=== PATIENT | female | born 1955 | race Caucasian/White ===

== ENCOUNTER → 2019-09-19 15:43 | Outpatient (CLI) | payer OTHER, MEDICAID, SELFPAY ==
[2019-09-23 04:37] LABS: COVID19 Sendout Not Detected (Not Detected)
== END ==
PROVIDERS: Visit Provider Physician Assistant
DX: R05 Cough (principal); R06.02 Shortness of breath; R50.9 Fever, unspecified
CPT/HCPCS: 87635

== ENCOUNTER → 2019-11-12 11:22 | Outpatient (CLI) | payer OTHER, MEDICAID, SELFPAY ==
[2019-11-13 09:54] LABS: COVID19 Sendout Not Detected (Not Detect)
== END ==
PROVIDERS: Family Provider Nurse Practitioner Family; PCP Nurse Practitioner Family; Visit Provider Nurse Practitioner
DX: Z11.59 Encounter for screening for other viral diseases (principal)
CPT/HCPCS: 87635

== ENCOUNTER 2019-11-15 07:57 | Day surgery (SDC) | payer OTHER, MEDICAID, SELFPAY ==
[2019-11-12 12:36] VITALS: BMI 33.0
[2019-11-15] VITALS (7 sets, daily range): BP systolic 105–125; BP diastolic 59–75; PULSE 73–85; RESP 12–16; TEMP 36–36.8; O2SAT 92–95; BMI 32.8
[2019-11-15] MEDS: LACTATED RINGERS 1,000 ML 42 ML IV (08:20)
--- NOTE | 2019-11-15 08:30 | PM.PREOP ---
Pre-operative Note COVID-19 COVID-19 status: Negative Result date/Date tested (Pos, Neg/Pending): 11/12/19 Interval Note History & Physical reviewed/Exam performed by Physician: Yes Changes to H&P: No
[2019-11-15] MEDS: ACETAMINOPHEN 325 MG TABLET 975 MG PO (08:38)
[2019-11-15] MEDS: SCOPOLAMINE 1 PATCH TOP (08:39)
--- NOTE | 2019-11-15 08:49 | SUR.OPER ---
Lithotomy on padded OR bed, head on pillow, arms secured on padded arm boards at <90 degrees abduction. Legs secured in padded yellow fins stirrups.
[2019-11-15] MEDS: CEFAZOLIN 2 GM/100 ML FROZ.PIGGY IV (09:00)
[2019-11-15] MEDS: BUPIVACAINE 0.5% W/ EPI (PF) 30 ML VIAL INJ (09:18)
--- NOTE | 2019-11-15 10:05 | PM.OP.1 ---
Operative Date/Time/Diagnoses Date of procedure: 11/15/19 Time of procedure: 10:05 Pre-op diagnosis: Symptomatic rectocele and gaping introitus Post-op diagnosis: same Procedure & Clinicians Procedure: Rectocele repair with perineoplasty Same procedure as scheduled: Yes Indications: Symptomatic rectocele Surgeon: Rosana Snowden Click Yes if Unassisted: Yes Anesthesia Type: General Operative Notes Findings: Rectocele with gaping introitus Closure Type: primary Specimen(s): none sent Estimated Blood Loss (mL): 100 Blood products transfused: none Procedure in detail: Patient underwent general anesthesia and was prepped and draped in the usual sterile fashion in [facility] stir[facility]ups. 2 g of Ancef were in prior to beginning the case, warming was in place, pulsatile stockings in place and functional. A check system was reviewed with the staff in the room prior to beginning the case. A dilute solution of 0.5% Marcaine was injected over the rectocele and the area for the perineoplasty. A wedge-shaped tissue was taken out of the posterior fourchette with the scalpel. An incision was made over the rectocele in the midline. Dissection was undertaken laterally. There was a right lateral defect in the rectal fascia. This was repaired with 2 0 Vicryl suture. Plication sutures of 0 Vicryl suture were placed over the rectocele. Small amount of excess tissue was removed the vaginal incision was repaired with 2 0 Vicryl suture. The perineal body was built up with 0 Vicryl followed by 2 0 Vicryl suture. The skin was closed with 2 0 Vicryl. Finger in the rectum did not reveal any sutures in the rectum. Counts of instruments and sponges were correct. Patient went to recovery room in good condition Complications: none Post-operative Condition: stable Disposition: same day surgery Plan for aftercare: Home when awake and stable to
[2019-11-15] MEDS: OXYCODONE IR 5 MG TABLET PO ×2 (10:08→10:38)
== END 2019-11-15 11:04 | disposition home or self-care (01) ==
PROVIDERS: Family Provider Nurse Practitioner Family; PCP Student in an Organized Health Care Education/Training Program; Referring Provider Student in an Organized Health Care Education/Training Program; Visit Provider Specialist
PROC: (CPT 57250; principal; 2019-11-15 09:15)
DX: N81.6 Rectocele (principal); R15.9 Full incontinence of feces; G47.33 Obstructive sleep apnea (adult) (pediatric); F41.9 Anxiety disorder, unspecified
CPT/HCPCS: 57250; J0690; J1100; J1885; J2250; J2405; J2704; J3010

== ENCOUNTER 2019-12-20 13:32 | Emergency (ER) | payer OTHER, MEDICAID, SELFPAY ==
[2019-12-20] VITALS (10 sets, daily range): BP systolic 135–163; BP diastolic 62–88; PULSE 86–95; RESP 20; TEMP 37.6; O2SAT 93–98; BMI 32.3
--- NOTE | 2019-12-20 13:41 | DI.CT.S_ITS ---
PROCEDURE: CT ABDOMEN PELVIS W CON INDICATIONS: Left-sided abdominal pain TECHNIQUE: After the administration of intravenous contrast, 5 mm thick sections acquired from the diaphragm to the symphysis. 5 mm coronal and sagittal reformats were acquired. For radiation dose reduction, the following was used: automated exposure control, adjustment of mA and/or kV according to patient size. COMPARISON: None. FINDINGS: Image quality: Excellent. ABDOMEN: Lung bases: Mild bibasilar dependent atelectasis is seen. Heart size is normal. Solid organs: Liver is normal in size . Hepatic steatosis is seen. Well-circumscribed hypodense area involving medial segment of left hepatic lobe is seen measures 3 x 3.3 cm in size and 6 Hounsfield unit density likely represent hepatic cyst. 2.4 x 1.4 cm slightly hyperdense structure is noted within dependent portion of gallbladder lumen likely represent a gallstone. Gallbladder wall mass cannot be entirely excluded. No gallbladder wall thickening or pericholecystic fluid. Biliary system is non dilated. Pancreas enhances normally. Spleen is normal in size and enhancement. 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 No adrenal nodules. Kidneys demonstrate normal size and enhancement, without hydronephrosis. Small bilateral renal cysts are seen. Peritoneum and bowel: There is no evidence of bowel obstruction. No gastric or small bowel wall thickening. Appendix is visualized and is within normal limits. Wall thickening and narrowing of the lumen involving proximal to mid sigmoid colon is seen with pericolonic fat stranding. Numerous sigmoid colon diverticuli are also noted. Finding is consistent with acute diverticulitis in this region. No abscess collection. No free fluid or free air. Nodes and vessels: No retroperitoneal or mesenteric adenopathy by size criteria. Aorta and inferior vena cava are normal in size. Miscellaneous: No ventral hernias. PELVIS: Genitourinary: Bladder wall thickness is normal. Miscellaneous: No inguinal hernias or adenopathy. Bones: No suspicious bony lesions. No vertebral body compression fractures. IMPRESSION: 1. Finding is suggestive of acute diverticulitis involving proximal to mid sigmoid colon. No evidence of abscess collection. No bowel obstruction. No free fluid or free air. Normal appendix. 2. No renal stone or hydronephrosis. Bilateral renal cysts. 3. Likely 3 x 3.3 centimeter cyst in left hepatic lobe. 4. Suggestion of cholelithiasis. Gallbladder mass cannot be entirely excluded. Follow-up with outpatient ultrasound of abdomen is recommended. Dictated by: Marcial Palacios M.D. on 12/20/2019 at 15:04 Approved by: Marcial Palacios M.D. on 12/20/2019 at 15:30
--- NOTE | 2019-12-20 13:48 | ED_ITS ---
HPI - General Adult General Chief complaint: Abdominal Pain Stated complaint: Abd pain x1 Time Seen by Provider: 12/20/19 13:40 Source: patient Mode of arrival: Ambulatory Limitations: no limitations History of Present Illness HPI narrative: Patient is a 64-year-old female sent over from her primary doctor's office for evaluation of left lower quadrant abdominal pain. Patient states that symptoms been going on for the past 12 hours or so. She stated that last evening she generally did not feel very well and then overnight started having left-sided abdominal pain. She does have a history of diverticulitis/di verticulosis. She stated initially this symptoms did feel like her prior history of diverticulitis however now the symptoms seem to have moved lower into her pelvis. She is having some nausea but no vomiting. Several weeks ago she did have a rectocele repair performed. She denies any change in her bowel habits. No urinary symptoms. No vaginal bleeding. No prior abdominal surgeries except for the rectocele repair. Has not tried anything for symptoms prior to arrival. Related Data Home Medications Medication Instructions Recorded Confirmed bupropion HCl 300 mg 24 hr tablet, 300 mg PO QAM 10/30/19 11/29/19 extended release trazodone 150 mg tablet 150 mg PO BEDTIME PRN 10/30/19 11/29/19 Previous Rx's Medication Instructions Recorded oxycodone-acetaminophen 5 mg-325 2 tab PO Q4-6H PRN #14 tab 11/16/19 mg tablet ciprofloxacin HCl 500 mg PO BID 10 Days #20 tab 12/20/19 metronidazole [Flagyl] 500 mg PO TID 10 Days #30 tab 12/20/19 Allergies Allergy/AdvReac Type Severity Reaction Status Date / Time hydrocodone [From [place]] AdvReac itching/steve Verified 11/29/19 16:12 mbling Review of Systems Constitutional Constitutional: Reports chills, Denies fever(s) and Reports malaise Cardiovascular Cardiovascular: Denies chest pain and Denies dyspnea Respiratory Respiratory: Denies dyspnea Gastrointestinal Gastrointestinal: Reports abdominal pain, Denies melena, Denies hematochezia, Denies change in bowel habits, Denies constipation, Denies diarrhea, Reports nausea and Denies vomiting Genitourinary Genitourinary: Denies dysuria Genitourinary: Denies dysuria Musculoskeletal Musculoskeletal: Denies arthralgias and Denies myalgias Integumentary/Breasts Skin/Breast: Denies rash Neurologic Neurologic: Denies behavioral changes Psychiatric Psychiatric: Denies behavioral changes Hematologic/Lymphatic Hematologic/Lymphatic: Denies easy bleeding and Denies easy bruising Allergic/Immunologic Allergic/Immunologic: Denies urticaria Patient History Medical History (Updated 12/20/19 @ 16:02 by Manav Rose DO) Anxiety (Acute) Diverticulitis (Acute) Diverticulosis (Acute) Fecal incontinence due to anorectal disorder (Inactive) Mild vaginal dysplasia, histologically confirmed (Inactive) ASHKAN (obstructive sleep apnea) (Acute) Rectocele (Inactive) Urge incontinence (Inactive) Surgical History (Updated 11/12/19 @ 12:41 by Laurie Sen RN) Hx of colonoscopy (Acute) Social History household members: none Smoking Status: Never smoker alcohol intake: current Smoking Status: Never smoker alcohol intake frequency: a few times a week Substance Use Type: does not use Exam Initial Vital Signs Initial Vital Signs: Vital Signs Pulse Rate 93 H 12/20/19 13:41 Pulse Oximetry 94 12/20/19 13:41 Const General: cooperative and No comfortable (Uncomfortable) Limitations: mental status not altered HENMT Head: normal to inspection and normocephalic Resp Effort & Inspection: normal respiratory effort Auscultation: clear to auscultation bilaterally Cardio Rate: regular rate Rhythm: regular rhythm GI Inspection: non-distended Palpation: soft, No firm and tender (Left-sided abdomen/left adnexa/suprapubic) Back/Spine/Pelvis Back: CVA tenderness left Skin Lesions: no lesions Rashes: no rashes Neuro General: patient alert, patient awake and patient oriented x3 Cognition: normal cognition Speech: speech normal Extrem General: normal to inspection and capillary refill normal Psych Appearance: grossly normal and well kempt Scores GCS Morton coma scale eye opening: Spontaneous Morton coma scale verbal response: Orientated Morton coma scale motor response: Obey commands Morton coma scale total score: 15 Course Orders Ordered: ED Orders 12/20/19 13:41 CT abdomen pelvis w con Stat 12/20/19 14:05 Complete Blood Count AUTO DIFF Stat Comprehensive Metabolic Panel Stat Lactate (Lactic Acid) Stat Lipase Stat 12/20/19 15:10 Urine Culture Stat Urine Microscopic Stat Discontinued Medications Sodium Chloride (Normal Saline 0.9%) 1,000 mls @ 1,000 mls/hr IV BOLUS ONE Stop: 12/20/19 14:39 Last Infusion: 12/20/19 15:13 Dose: 0 mls/hr Documented by: Admin: 12/20/19 14:07 Dose: 1,000 mls/hr Documented by: NEERU Morphine Sulfate (Morphine) 4 mg IV NOW ONE Stop: 12/20/19 13:49 Last Admin: 12/20/19 14:07 Dose: 4 mg Documented by: NEERU Ondansetron HCl (Zofran) 4 mg IV NOW ONE Stop: 12/20/19 13:49 Last Admin: 12/20/19 14:07 Dose: 4 mg Documented by: NEERU Vital Signs Vital signs: Vital Signs - 8 hr 12/20/19 13:41 12/20/19 13:42 12/20/19 14:00 Temperature Pulse Rate 93 H 90 89 Respiratory Rate Blood Pressure 163/78 H 152/75 H Pulse Oximetry 94 95 95 12/20/19 14:01 12/20/19 14:05 12/20/19 14:30 Temperature 99.6 F Pulse Rate 89 88 86 Respiratory Rate 20 Blood Pressure 163/78 H 152/88 H 142/67 H Pulse Oximetry 95 97 96 12/20/19 14:50 12/20/19 15:00 12/20/19 15:30 Temperature Pulse Rate 92 H 95 H 94 H Respiratory Rate Blood Pressure 150/71 H 135/62 142/72 H Pulse Oximetry 93 96 97 12/20/19 16:00 Temperature Pulse Rate 87 Respiratory Rate Blood Pressure 148/73 H Pulse Oximetry 98 Medical Decision Making Medical Records Medical records reviewed: Yes I reviewed the patient's medical records. Lab Data Lab results reviewed: Yes I reviewed the patient's lab results. Result diagrams: 12/20/19 14:05 12/20/19 14:05 Labs: Lab Results 12/20/19 12/20/19 12/20/19 Range/Units 14:05 14:05 14:05 WBC 12.3 H (4.5-11.0) X10^3/uL RBC 4.49 (4.0-5.2) X10^6/uL Hgb 13.7 (12.0-16.0) g/dL Hct 40.1 (36-46) % MCV 89.2 (80-100) fL MCH 30.4 (26-34) PG MCHC 34.1 (30-36) % RDW 13.3 (11.6-14.8) % Plt Count 218 (150-400) X10^3/uL Neut % (Auto) 76.9 H (50-75) % Lymph % (Auto) 13.0 L (25-40) % Mcleod % (Auto) 8.5 (3-14) % Eos % (Auto) 1.0 L (2-4) % Baso % (Auto) 0.6 (0-2) % Neut # (Auto) 9400 H (8744-7735) /uL Lymph # (Auto) 1600 (7101-2617) /uL Mcleod # (Auto) 1000 H (0-900) /uL Eos # (Auto) 100 (0-450) /uL Baso # (Auto) 100 (0-100) /uL Sodium 138 (137-145) mmol/L Potassium 3.9 (3.4-5.1) mmol/L Chloride 101 (98-107) mmol/L Carbon Dioxide 30 (22-32) mmol/L BUN 13 (7-17) mg/dL Creatinine 0.59 (0.52-1.04) mg/dL Estimated GFR > 60.0 (>60) mL/min BUN/Creatinine Ratio 22.0 (6-22) Glucose 110 (80-110) mg/dL Lactate 1.2 (0.7-2.1) mmol/L Calcium 9.0 (8.4-10.2) mg/dL Total Bilirubin 0.5 (0.2-1.3) mg/dL AST 25 (14-36) IU/L ALT 40 H (<35) IU/L Alkaline Phosphatase 98 (38-126) U/L Total Protein 7.1 (6.3-8.2) g/dL Albumin 4.2 (3.5-5.0) g/dL Globulin 2.9 (1.7-4.1) g/dL Albumin/Globulin Ratio 1.4 (1.0-2.8) Lipase 57 (23-300) U/L Urine RBC (0-5/HPF) Urine WBC (0-5/HPF) Urine Bacteria (None) Ur Culture Indicated? 12/20/19 Range/Units 15:10 WBC (4.5-11.0) X10^3/uL RBC (4.0-5.2) X10^6/uL Hgb (12.0-16.0) g/dL Hct (36-46) % MCV (80-100) fL MCH (26-34) PG MCHC (30-36) % RDW (11.6-14.8) % Plt Count (150-400) X10^3/uL Neut % (Auto) (50-75) % Lymph % (Auto) (25-40) % Mcleod % (Auto) (3-14) % Eos % (Auto) (2-4) % Baso % (Auto) (0-2) % Neut # (Auto) (2701-9302) /uL Lymph # (Auto) (3581-7407) /uL Mcleod # (Auto) (0-900) /uL Eos # (Auto) (0-450) /uL Baso # (Auto) (0-100) /uL Sodium (137-145) mmol/L Potassium (3.4-5.1) mmol/L Chloride (98-107) mmol/L Carbon Dioxide (22-32) mmol/L BUN (7-17) mg/dL Creatinine (0.52-1.04) mg/dL Estimated GFR (>60) mL/min BUN/Creatinine Ratio (6-22) Glucose (80-110) mg/dL Lactate (0.7-2.1) mmol/L Calcium (8.4-10.2) mg/dL Total Bilirubin (0.2-1.3) mg/dL AST (14-36) IU/L ALT (<35) IU/L Alkaline Phosphatase (38-126) U/L Total Protein (6.3-8.2) g/dL Albumin (3.5-5.0) g/dL Globulin (1.7-4.1) g/dL Albumin/Globulin Ratio (1.0-2.8) Lipase (23-300) U/L Urine RBC 0-1/hpf (0-5/HPF) Urine WBC 5-10/hpf H (0-5/HPF) Urine Bacteria Few (2-10) H (None) Ur Culture Indicated? Specimen cultured Urine Dip Bedside Urine Glucose Negative Bedside Urine Bilirubin - Negative Bedside Urine Ketone - Negative Urine Specific Grayling 1.010 Bedside Urine Occult Blood - Negative Bedside Urine pH 7.0 Bedside Urine Protein - Negative Bedside Urine Urobilinogen - Negative Bedside Urine Nitrite - Negative Bedside Urine Leukocytes + 70 Esterase Point of care testing: Urine Dip Bedside Urine Glucose Negative Bedside Urine Bilirubin - Negative Bedside Urine Ketone - Negative Urine Specific Grayling 1.010 Bedside Urine Occult Blood - Negative Bedside Urine pH 7.0 Bedside Urine Protein - Negative Bedside Urine Urobilinogen - Negative Bedside Urine Nitrite - Negative Bedside Urine Leukocytes + [address] scan - abdomen/pelvis: Radiologist's Impression: [address] [address] [address] Scan Report Signed Patient: Laney Cervantes#: [id number] : 6Acct:[id number] Age/Sex: 64 / FDate of Service: 12/20/19 Loc: ED Accession Number: [id number] Procedure: CT abdomen pelvis w con Ordering Provider: Manav Rose D.O. PROCEDURE: CT ABDOMEN PELVIS W CON INDICATIONS: Left-sided abdominal pain TECHNIQUE: After the administration of intravenous contrast, 5 mm thick sections acquired from the diaphragm to the symphysis. 5 mm coronal and sagittal reformats were acquired. For radiation dose reduction, the following was used: automated exposure control, adjustment of mA and/or kV according to patient size. COMPARISON: None. FINDINGS: Image quality: Excellent. ABDOMEN: Lung bases: Mild bibasilar dependent atelectasis is seen. Heart size is normal. Solid organs: Liver is normal in size . Hepatic steatosis is seen. Well- circumscribed hypodense area involving medial segment of left hepatic lobe is seen measures 3 x 3.3 cm in size and 6 Hounsfield unit density likely represent hepatic cyst. 2.4 x 1.4 cm slightly hyperdense structure is noted within dependent portion of gallbladder lumen likely represent a gallstone. Gallbladder wall mass cannot be entirely ex cluded. No gallbladder wall thickening or pericholecystic fluid. Biliary system is non dilated. Pancreas enhances normally. Spleen is normal in size and enhancement. 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 No adrenal nodules. Kidneys demonstrate normal size and enhancement, without hydronephrosis. Small bilateral renal cysts are seen. Peritoneum and bowel: There is no evidence of bowel obstruction. No gastric or small bowel wall thickening. Appendix is visualized and is within normal limits. Wall thickening and narrowing of the lumen involving proximal to mid sigmoid colon is seen with pericolonic fat stranding. Numerous sigmoid colon diverticuli are also noted. Finding is consistent with acute diverticulitis in this region. No abscess c ollection. No free fluid or free air. Nodes and vessels: No retroperitoneal or mesenteric adenopathy by size criteria. Aorta and inferior vena cava are normal in size. Miscellaneous: No ventral hernias. PELVIS: Genitourinary: Bladder wall thickness is normal. Miscellaneous: No inguinal hernias or adenopathy. Bones: No suspicious bony lesions. No vertebral body compression fractures. IMPRESSION: 1. Finding is suggestive of acute diverticulitis involving proximal to mid sigmoid colon. No evidence of abscess collection. No bowel obstruction. No free fluid or free air. Normal appendix. 2. No renal stone or hydronephrosis. Bilateral renal cysts. 3. Likely 3 x 3.3 centimeter cyst in left hepatic lobe. 4. Suggestion of cholelithiasis. Gallbladder mass cannot be entirely excluded. Follow-up with outpatient ultrasound of abdomen is recommended. Dictated by: Marcial Palacios M.D. on 12/20/2019 at 15:04 Approved by: Marcial Palacios M.D. on 12/20/2019 at 15:30 MDM Narrative Medical decision making narrative: History and physical exam and CT scan consistent with sigmoid diverticulitis. Patient has a nonsurgical abdomen. Has had diverticulitis in the past. Leukocytosis is consistent with this infection. Will treat with antibiotics. Is given a prescription for Cipro and Flagyl. She was given return precautions and follow-up instructions. She expressed understanding and agreement. Discharge Plan Departure Patient Disposition: Home Clinical Impression: Diverticulitis Discharge Date/Time: 12/20/19 16:25 Instructions: DI for Diverticulitis Activity Restrictions/Additional Instructions: A prescription for antibiotics was electronically transmitted to safely. Please take it as directed. Contact your primary provider for follow-up. Return to the emergency department for any new or worsening symptoms Prescriptions: New ciprofloxacin HCl 500 mg tablet 500 mg PO BID 10 Days Qty: 20 RF: 0 metronidazole [Flagyl] 500 mg tablet 500 mg PO TID 10 Days Qty: 30 RF: 0 No Action oxycodone-acetaminophen 5-325 mg tablet 2 tab PO Q4-6H PRN (Reason: pain) Qty: 14 RF: 0 trazodone 150 mg tablet 150 mg PO BEDTIME PRN (Reason: Sleep) RF: 0 bupropion HCl [Wellbutrin XL] 300 mg tablet extended release 24 hr 300 mg PO QAM RF: 0 Referrals: Crista Valadez MD [Primary Care Provider] -
[2019-12-20] MEDS: MORPHINE 4 MG/ML INJ IV (14:07)
[2019-12-20] MEDS: ONDANSETRON 4 MG/2 ML INJ IV (14:07)
[2019-12-20] MEDS: SODIUM CHLORIDE 0.9% 1,000 ML 1000 ML IV (14:07)
[2019-12-20 14:12] LABS: Add Manual Diff / Slide Review NO; Basophils Absolute Auto 100 /uL (0-100); Basophils Percent Auto 0.6 % (0-2); Eosinophils Absolute Auto 100 /uL (0-450); Hematocrit 40.1 % (36-46); Hemoglobin 13.7 g/dL (12.0-16.0); Lymphocytes Absolute Auto 1600 /uL (1100-4500); Mean Corpuscular HGB Conc 34.1 % (30-36); Mean Corpuscular Hemoglobin 30.4 PG (26-34); Mean Corpuscular Volume 89.2 fL (80-100); Monocytes Absolute Auto 1000 /uL (0-900); Monocytes Percent Auto 8.5 % (3-14); Neutrophils Absolute Auto 9400 /uL (1500-7000); Neutrophils Percent Auto 76.9 % (50-75); Platelet Count 218 X10^3/uL (150-400); Red Blood Cell Count 4.49 X10^6/uL (4.0-5.2); Red Cell Distribution Width 13.3 % (11.6-14.8); White Blood Cell Count 12.3 X10^3/uL (4.5-11.0)
[2019-12-20 14:24] LABS: Alanine Aminotransferase 40 IU/L (<35); Albumin 4.2 g/dL (3.5-5.0); Albumin Globulin Ratio 1.4 (1.0-2.8); Alkaline Phosphatase 98 U/L (38-126); Aspartate Aminotransferase 25 IU/L (14-36); Bilirubin Total 0.5 mg/dL (0.2-1.3); Blood Urea Nitrogen 13 mg/dL (7-17); Carbon Dioxide 30 mmol/L (22-32); Chloride 101 mmol/L (98-107); Estimated Glomerular Filt Rate > 60.0 mL/min (>60); Globulin 2.9 g/dL (1.7-4.1); Glucose 110 mg/dL (80-110); HEMOLYSIS < 15 (0-50); Lactate (Lactic Acid) 1.2 mmol/L (0.7-2.1); Lipase 57 U/L (23-300); Potassium 3.9 mmol/L (3.4-5.1); Sodium 138 mmol/L (137-145); Total Protein 7.1 g/dL (6.3-8.2)
[2019-12-20 15:46] LABS: Bacteria Urine Few (2-10); Culture Indicated Urine Specimen Cultured; RBC Urine 0-1/HPF (0-5/HPF); WBC Urine 5-10/HPF (0-5/HPF)
== END 2019-12-20 16:25 | disposition home or self-care (01) ==
PROVIDERS: Emergency Provider Emergency Medicine; Family Provider Nurse Practitioner Family; PCP Student in an Organized Health Care Education/Training Program
DX: K57.92 Diverticulitis of intestine, part unspecified, without perforation or abscess without bleeding (principal)
CPT/HCPCS: 36415; 74177; 80053; 81003; 81015; 83605; 83690; 85025; 87086; 96361; 96374; 96375; 99284; J2270; J2405; Q9967

== ENCOUNTER → 2020-01-10 09:12 | Outpatient (CLI) | payer OTHER, MEDICAID, SELFPAY ==
--- NOTE | 2020-01-10 | DI.MRI.S_ITS ---
PROCEDURE: MR HEAD/BRAIN WO/W CON INDICATIONS: Transient cerebral ischemic attack, unspecified TECHNIQUE: Noncontrast axial T1 spin echo, axial T2 fast spin echo, sagittal and axial FLAIR, coronal T2 fast spin echo, axial gradient echo, axial diffusion and ADC through the brain. After the administration of contrast, axial and coronal 3D VIBE or T1 spin echo with fat saturation through the brain. COMPARISON: None. FINDINGS: Image quality: Limited by motion artifact. CSF Spaces: Basal cisterns are patent. No extra-axial fluid collections. Ventricles are normal in size and shape. Brain: No midline shift. No intracranial bleeds or masses. No abnormal intracranial enhancement. The brainstem appears normal. Diffusion-weighted images demonstrate no acute ischemic insults. No chronic ischemic insults. Normal intravascular flow voids are present. Dural sinuses demonstrate normal postcontrast enhancement. Skull and face: Calvarial marrow is normal in signal. Orbits appear normal. Sinuses: Sinuses and mastoids appear clear. IMPRESSION: 1. No acute intracranial disease process. 2. No areas of acute or chronic infarction. 3. No abnormal intracranial mass or mass effect. 4. No suspicious postcontrast enhancement. Dictated by: Ondina Black MD, PhD on 01/10/2020 at 11:27 Approved by: Ondina Black MD, PhD on 01/10/2020 at 11:31
== END ==
PROVIDERS: Family Provider Nurse Practitioner Family; PCP Student in an Organized Health Care Education/Training Program; Referring Provider Student in an Organized Health Care Education/Training Program; Visit Provider Student in an Organized Health Care Education/Training Program
DX: G45.9 Transient cerebral ischemic attack, unspecified (principal); H53.8 Other visual disturbances; R51.9 Headache, unspecified
CPT/HCPCS: 70553

== ENCOUNTER → 2020-01-11 13:21 | Outpatient (CLI) | payer OTHER, MEDICAID, SELFPAY ==
--- NOTE | 2020-01-11 13:22 | DI.MG.S_ITS ---
BILATERAL DIGITAL SCREENING MAMMOGRAM 3D/2D WITH CAD: 01/11/2020 CLINICAL: Routine screening. Comparison is made to exams dated: 07/31/2018 mammogram, 01/06/2017 mammogram, and 11/13/2015 mammogram - outside location. There are scattered fibroglandular elements in both breasts. Current study was also evaluated with a Computer Aided Detection (CAD) system. No significant masses, calcifications, or other findings are seen in either breast. There has been no significant interval change. IMPRESSION: NEGATIVE There is no mammographic evidence of malignancy. A 1 year screening mammogram is recommended. This exam was interpreted at Station ID: [id number]. NOTE: For mammograms, a report in lay terms will be sent to the patient. Approximately 15% of breast malignancies will not be visualized mammographically. In the management of a palpable breast mass, a negative mammogram must not discourage biopsy of a clinically suspicious lesion. Electronically Signed By: Ghislaine sapp/hector:01/13/2020 10:35:18 letter sent: Normal Exam ACR BI-RADS Category 1: Negative [id number]
== END ==
PROVIDERS: Family Provider Nurse Practitioner Family; PCP Student in an Organized Health Care Education/Training Program; Referring Provider Student in an Organized Health Care Education/Training Program; Visit Provider Student in an Organized Health Care Education/Training Program
DX: Z12.31 Encounter for screening mammogram for malignant neoplasm of breast (principal)
CPT/HCPCS: 77063; 77067

== ENCOUNTER → 2020-02-17 09:44 | Outpatient (CLI) | payer OTHER, MEDICAID, SELFPAY ==
[2020-02-17 10:12] LABS: COVID19 -Nasal RAPID POSITIVE (Negative)
== END ==
PROVIDERS: Family Provider Nurse Practitioner Family; PCP Student in an Organized Health Care Education/Training Program; Visit Provider Physician Assistant
DX: U07.1 COVID-19 (principal)
CPT/HCPCS: 87635

== ENCOUNTER 2020-02-26 17:49 | Emergency (ER) | payer OTHER, MEDICAID, SELFPAY ==
[2020-02-26 17:55] VITALS: BP 151/78; PULSE 90; RESP 17; TEMP 38.2; O2SAT 97; BMI 30.4
[2020-02-26 18:35] VITALS: PULSE 84; O2SAT 96
[2020-02-26 18:36] VITALS: BP 146/67; PULSE 84; O2SAT 97
--- NOTE | 2020-02-26 18:41 | DI.RAD.S_ITS ---
PROCEDURE: XR CHEST 1V INDICATIONS: covid + with SOB TECHNIQUE: One view of the chest was acquired. COMPARISON: None. FINDINGS: Surgical changes and devices: None. Mild patchy opacity in the right lung base. No pleural effusions or pneumothorax. Mediastinum: Mediastinal contours appear normal. Heart size is normal. Bones and chest wall: No suspicious bony lesions. Overlying soft tissues appear unremarkable. IMPRESSION: Mild patchy opacities involving the right lung base, suspicious for early pneumonia. Dictated by: Sea Torres M.D. on 02/26/2020 at 19:28 Approved by: Sea Torres M.D. on 02/26/2020 at 19:29
[2020-02-26 19:00] VITALS: BP 131/64; PULSE 81; O2SAT 94
[2020-02-26 19:30] VITALS: BP 146/68; PULSE 88; O2SAT 94
--- NOTE | 2020-02-26 19:48 | ED.GENADULT ---
HPI - General Adult General Chief complaint: Shortness of Breath/Dyspnea Stated complaint: SOB,positive COVID 10 days ago Time Seen by Provider: 02/26/20 18:03 Source: patient Mode of arrival: EMS Limitations: no limitations History of Present Illness HPI narrative: 64-year-old female who denies any other medical problems who was diagnosed with COVID approximately 10 days ago after having 2 days of symptoms prior to that here for evaluation of fevers and body aches and generally not feeling very well. She states she lives on her own and is having hard time taking care of herself because of how poorly she is feeling. Has had decreased oral intake recently. No rashes. Related Data Home Medications Medication Instructions Recorded Confirmed bupropion HCl 300 mg 24 hr tablet, 300 mg PO QAM 10/30/19 01/21/20 extended release trazodone 150 mg tablet 150 mg PO BEDTIME PRN 10/30/19 01/21/20 Previous Rx's Medication Instructions Recorded albuterol sulfate 90 mcg/actuation 2 puff INHALATION Q4-6H PRN #8.5 g 02/17/20 aerosol inhaler benzonatate 100 mg capsule 100 mg PO BID PRN #30 cap 02/17/20 Allergies Allergy/AdvReac Type Severity Reaction Status Date / Time hydrocodone [From Cades] AdvReac itching/steve Verified 02/26/20 18:00 mbling Review of Systems Constitutional Constitutional: Reports chills, Reports fatigue, Reports fever(s) and Reports lethargy Cardiovascular Cardiovascular: Denies chest pain and Reports dyspnea Respiratory Respiratory: Reports cough and Reports dyspnea Gastrointestinal Gastrointestinal: Denies change in bowel habits Musculoskeletal Musculoskeletal: Denies arthralgias and Reports myalgias Integumentary/Breasts Skin/Breast: Denies rash Neurologic Neurologic: Denies behavioral changes Psychiatric Psychiatric: Denies behavioral changes Endocrine Endocrine: Reports fatigue Hematologic/Lymphatic Hematologic/Lymphatic: Denies easy bleeding and Denies easy bruising Patient History Medical History Anxiety Diverticulitis Diverticulosis Fecal incontinence due to anorectal disorder Flu-like symptoms Mild vaginal dysplasia, histologically confirmed ASHKAN (obstructive sleep apnea) Rectocele Urge incontinence Surgical History Hx of colonoscopy Family History Family/Other Loud snoring Father Loud snoring Hypertension Diabetes mellitus Heart disease Depression Mother Loud snoring Obesity Hypertension Diabetes mellitus Depression Family/Other Obesity Heart disease Depression Social History household members: none Smoking Status: Never smoker alcohol intake: current Smoking Status: Never smoker alcohol intake frequency: a few times a week Substance Use Type: does not use Exam Initial Vital Signs Initial Vital Signs: Vital Signs Temperature 100.8 F H 02/26/20 17:55 Pulse Rate 90 02/26/20 17:55 Respiratory Rate 17 02/26/20 17:55 Blood Pressure 151/78 H 02/26/20 17:55 Pulse Oximetry 97 02/26/20 17:55 Const General: cooperative and comfortable Limitations: mental status not altered HENMT Head: normal to inspection and normocephalic Resp Effort & Inspection: normal respiratory effort Auscultation: clear to auscultation bilaterally Cardio Rate: regular rate Rhythm: regular rhythm Skin Lesions: no lesions Rashes: no rashes Neuro General: patient alert and patient awake Extrem General: capillary refill normal Psych Appearance: grossly normal and well kempt Course Orders Ordered: ED Orders 02/26/20 18:41 XR chest 1V Stat Vital Signs Vital signs: Vital Signs - 8 hr 02/26/20 17:55 02/26/20 18:35 02/26/20 18:36 Temperature 100.8 F H Pulse Rate 90 84 84 Respiratory Rate 17 Blood Pressure 151/78 H 146/67 H Pulse Oximetry 97 96 97 02/26/20 19:00 02/26/20 19:30 02/26/20 20:01 Temperature Pulse Rate 81 88 88 Respiratory Rate Blood Pressure 131/64 146/68 H 150/71 H Pulse Oximetry 94 94 95 Medical Decision Making Imaging Data Chest x-ray: Radiologist's Impression: [address] [id number] ReportSigned Patient: Laurie Cervantes DMR#: [id number]: 6Acct:[id number]/Sex: 64 / FDate of Service: 02/26/20Loc: EDAccession Number: [id number] Procedure: XR chest 1V Ordering Provider: Manav Rose D.O. PROCEDURE: XR CHEST 1V INDICATIONS: covid + with SOB TECHNIQUE: One view of the chest was acquired. COMPARISON: None. FINDINGS: Surgical changes and devices: None. Mild patchy opacity in the right lung base. No pleural effusions or pneumothorax. Mediastinum: Mediastinal contours appear normal. Heart size is normal. Bones and chest wall: No suspicious bony lesions. Overlying soft tissues appear unremarkable. IMPRESSION: Mild patchy opacities involving the right lung base, suspicious for early pneumonia. Dictated by: Sea Torres M.D. on 02/26/2020 at 19:28 Approved by: Sea Torres M.D. on 02/26/2020 at 19:29 [facility] Narrative Medical decision making narrative: Patient is not hypoxic, not tachypneic, afebrile, clear lung exam, has had COVID for the past 10 days. Had a long discussion with the patient regarding her symptoms. Given her respiratory status I feel that admission to the hospital is not warranted. We did discuss increasing her fluid intake and the fact that she can receive calories from fluid even though she is unable to eat. Did discuss use of Tylenol for any fevers or body aches. She was given return precautions. She expressed understanding and agreement. Discharge Plan Departure Patient Disposition: Home Clinical Impression: COVID-19 Instructions: Coronavirus Disease 2019 Activity Restrictions/Additional Instructions: Be sure to increase your fluid intake. You can get calories by drinking fluids such as fruit juices or Gatorade. You can take Tylenol for any fevers or body aches. Contact your primary provider for follow-up. Return to the emergency department for any new or worsening symptoms. You should quarantine yourself until you have been symptom-free for 24 hours. Prescriptions: No Action benzonatate [Tessalon Perles] 100 mg capsule 100 mg PO BID PRN (Reason: cough) Qty: 30 RF: 0 albuterol sulfate 90 mcg/actuation HFA aerosol inhaler 2 puff inhalation Q4-6H PRN (Reason: bronchospasm) Qty: 8.5 RF: 0 trazodone 150 mg tablet 150 mg PO BEDTIME PRN (Reason: Sleep) RF: 0 bupropion HCl [Wellbutrin XL] 300 mg tablet extended release 24 hr 300 mg PO QAM RF: 0 Referrals: Crista Valadez MD [Primary Care Provider] -
[2020-02-26 20:01] VITALS: BP 150/71; PULSE 88; O2SAT 95
== END 2020-02-26 20:04 | disposition home or self-care (01) ==
PROVIDERS: Emergency Provider Emergency Medicine; Family Provider Nurse Practitioner Family; PCP Student in an Organized Health Care Education/Training Program
DX: U07.1 COVID-19 (principal); R50.9 Fever, unspecified; R05 Cough; R06.00 Dyspnea, unspecified; R53.83 Other fatigue
CPT/HCPCS: 71045; 99281; 99283

== ENCOUNTER → 2020-04-24 09:40 | Outpatient (CLI) | payer OTHER, MEDICAID, SELFPAY ==
--- NOTE | 2020-04-24 | DI.MRI.S_ITS ---
PROCEDURE: MR KNEE RT WO CON INDICATIONS: Pain in right knee TECHNIQUE: Noncontrast sagittal PD fast spin echo and T2 fast spin echo with fat saturation, sagittal 3-D FLASH with fat saturation; coronal T1 spin echo and PD fast spin echo with fat saturation, and axial PD fast spin echo with fat saturation through the knee. COMPARISON: None. FINDINGS: Image quality: Excellent. Menisci: There is medial and lateral meniscal extrusion. There is degenerative tear involving the body and posterior horn of the medial meniscus. Degenerative tear is also present in lateral meniscus involving the anterior and posterior horns and body. The meniscal root ligaments appear intact. Cruciate ligaments: The anterior and posterior cruciate ligaments appear intact. Medial structures: The medial collateral ligament appears intact. The semimembranosus tendon insertions and meniscocapsular junction appear intact. Visualized portions of the pes anserinus tendons appear normal. No abnormal bursal fluid. Lateral structures: The lateral collateral ligament, long and short heads of the biceps femoris tendon appear intact. The popliteus tendon appears normal. Iliotibial band appears normal. Anterior structures: There is increased T2 signal in quadriceps and patellar tendons at the patellar attachment consistent with mild tendinitis. No femoral trochlear dysplasia or ventral trochlear prominence. No edema in the infrapatellar fat pad. Nonspecific infrapatellar soft tissue swelling Bones and cartilage: No bone marrow contusions or fractures. Tricompartmental chondromalacia. Joint space: There is trace knee joint effusion. There is a small Winslow's cyst. Normal appearing synovial plicae are incidentally noted. IMPRESSION: 1. Medial and lateral meniscal extrusions and degenerative tear as described. 2. Tricompartmental chondromalacia. 3. Mild quadriceps and patellar tendinitis. 4. Small knee joint effusion. 5. Small Winslow cyst. Dictated by: Sai Melchor M.D. on 04/24/2020 at 11:07 Approved by: Sai Melchor M.D. on 04/24/2020 at 18:13
== END ==
PROVIDERS: Family Provider Nurse Practitioner Family; PCP Student in an Organized Health Care Education/Training Program; Referring Provider Student in an Organized Health Care Education/Training Program; Visit Provider Student in an Organized Health Care Education/Training Program
DX: M25.561 Pain in right knee (principal); M23.241 Derangement of anterior horn of lateral meniscus due to old tear or injury, right knee; M23.251 Derangement of posterior horn of lateral meniscus due to old tear or injury, right knee; M23.221 Derangement of posterior horn of medial meniscus due to old tear or injury, right knee; M94.261 Chondromalacia, right knee; M76.51 Patellar tendinitis, right knee; M25.461 Effusion, right knee
CPT/HCPCS: 73721

== ENCOUNTER → 2020-05-01 12:26 | Outpatient (CLI) | payer OTHER, MEDICAID, SELFPAY ==
--- NOTE | 2020-05-01 12:28 | DI.CT.S_ITS ---
PROCEDURE: CT ABDOMEN PELVIS W CON INDICATIONS: Unspecified abdominal pain TECHNIQUE: After the administration of oral and intravenous contrast, 5 mm thick sections acquired from the diaphragms to the symphysis. 5 mm thick coronal and sagittal reformats were performed. For radiation dose reduction, the following was used: automated exposure control, adjustment of mA and/or kV according to patient size. COMPARISON: [facility], CT, CT ABDOMEN PELVIS W CON, 12/20/2019, 14:40. FINDINGS: Image quality: Excellent. ABDOMEN: Lung bases: Lung bases are clear. Heart size is normal. Solid organs: Liver is normal in size and enhancement. Stable hepatic cyst in the left hepatic lobe. Gallbladder again contains a mildly hyperdense lesion that most likely represents a gallstone. Biliary system is non-dilated. Pancreas enhances normally. Spleen is normal in size and enhancement. No adrenal nodules. Kidneys are normal in size and enhancement, without hydronephrosis. Peritoneum and bowel: Multiple diverticula are seen in the sigmoid colon without signs of acute diverticulitis. Areas of mild bowel wall thickening in the colon could indicate a mild colitis. Normal appendix. No signs of bowel obstruction. No ascites or pneumoperitoneum. Nodes and vessels: No retroperitoneal or mesenteric adenopathy. Aorta and inferior vena cava are normal in caliber. Miscellaneous: No ventral hernias. PELVIS: Genitourinary: Bladder wall thickness is normal. Status post hysterectomy. Miscellaneous: No inguinal hernias or adenopathy. Bones: No suspicious bony lesions. No vertebral body compression fractures. Mild facet hypertrophy is seen in the lower lumbar spine. IMPRESSION: 1. Colonic diverticulosis without signs of acute diverticulitis. Additional segments of mild bowel wall thickening versus underdistention in the colon could indicate a mild colitis. 2. Mildly hyperdense lesion in the gallbladder again most likely represents a gallstone versus less likely tumefactive sludge or a soft tissue mass. Abdominal ultrasound is again suggested for further evaluation. Dictated by: Kris Taylor M.D. on 05/01/2020 at 13:49 Approved by: Kris Taylor M.D. on 05/01/2020 at 14:07
== END ==
PROVIDERS: Family Provider Nurse Practitioner Family; PCP Student in an Organized Health Care Education/Training Program; Referring Provider Student in an Organized Health Care Education/Training Program; Visit Provider Student in an Organized Health Care Education/Training Program
DX: R10.9 Unspecified abdominal pain (principal); K92.1 Melena; K76.89 Other specified diseases of liver; K82.9 Disease of gallbladder, unspecified; K57.30 Diverticulosis of large intestine without perforation or abscess without bleeding; Z90.710 Acquired absence of both cervix and uterus
CPT/HCPCS: 74177

== ENCOUNTER → 2020-05-22 10:53 | Outpatient (CLI) | payer OTHER, MEDICAID, SELFPAY ==
[2020-05-22] MEDS: COVID-19 VACC, Ad26(JANSSEN)/PF 0.5 ML IM (10:55)
== END ==
PROVIDERS: Family Provider Nurse Practitioner Family; PCP Student in an Organized Health Care Education/Training Program; Visit Provider Internal Medicine
DX: Z23 Encounter for immunization (principal)
CPT/HCPCS: 0031A; 91303

== ENCOUNTER → 2020-05-22 11:19 | Outpatient (CLI) | payer OTHER, MEDICAID, SELFPAY ==
--- NOTE | 2020-05-22 | DI.RAD.S_ITS ---
PROCEDURE: XR PELVIS 1-2V INDICATIONS: Disease of gallbladder, unspecified TECHNIQUE: Single view(s) of the pelvis acquired. COMPARISON: None. FINDINGS: Bones: No fracture. Mild bilateral hip joint degeneration. Lower lumbar spondylosis and facet disease. Mild degenerative sclerosis and spurring at the pubis symphysis. Soft tissues: Presumed bilateral pelvic phleboliths. IMPRESSION: Mild degenerative changes as above. Dictated by: Sea Torres M.D. on 05/22/2020 at 12:56 Approved by: Sea Torres M.D. on 05/22/2020 at 12:57
--- NOTE | 2020-05-22 13:53 | DI.US.S_ITS ---
PROCEDURE: US ABDOMEN COMPLETE INDICATIONS: ABDOMEN PAIN TECHNIQUE: Real-time scanning was performed of the abdominal and retroperitoneal organs, with image documentation. COMPARISON: [facility], CT, CT ABDOMEN PELVIS W CON, 05/01/2020, 13:23. FINDINGS: Liver: Liver is diffusely increased in echogenicity. No focal hepatic abnormalities identified. Normal hepatic size. 4.3 cm left hepatic lobe cyst. Gallbladder: 2.4 cm solitary gallstone and no gallbladder wall thickening. Biliary ducts: Intrahepatic bile ducts are non-dilated. Extrahepatic bile duct caliber measures 6.6 mm. Normal is 6-7 mm or less in diameter, or 10 mm or less post-cholecystectomy. Pancreas: Visualized portions of the pancreas are sonographically normal. Spleen: Spleen is normal in size and homogeneous in echotexture. Kidneys: Kidneys are normal in size and echotexture. Right kidney measures 10.4 cm long; left kidney measures 13.1 cm long. No hydronephrosis or nephrolithiasis. No solid masses. Aorta: Visualized aorta is normal in caliber at less than 3 cm. Iliacs: Proximal common iliac arteries are normal in caliber at less than 2.5 cm. IVC: Intrahepatic inferior vena cava is patent. Miscellaneous: No free abdominal fluid. IMPRESSION: 1. Increased hepatic echogenicity noted possibly related to hepatic steatosis but other sources of hepatocellular disease cannot be excluded. Recommend clinical correlation. 2. Cholelithiasis without acute cholecystitis. Dictated by: J Carlos GAMA Interpreted: Nemo Escalera MD on 05/22/2020 at 15:40 Approved by: Nemo Escalera M.D. on 05/22/2020 at 16:50
== END ==
PROVIDERS: Family Provider Nurse Practitioner Family; PCP Student in an Organized Health Care Education/Training Program; Referring Provider Student in an Organized Health Care Education/Training Program; Visit Provider Student in an Organized Health Care Education/Training Program
DX: K82.9 Disease of gallbladder, unspecified (principal); K80.20 Calculus of gallbladder without cholecystitis without obstruction; R10.2 Pelvic and perineal pain
CPT/HCPCS: 72170; 76700

== ENCOUNTER → 2020-07-07 15:02 | Outpatient (CLI) | payer MEDICARE, MEDICAID, SELFPAY ==
[2020-07-07 17:03] LABS: Ferritin 75 ng/mL (11-264)
== END ==
PROVIDERS: Family Provider Nurse Practitioner Family; PCP Student in an Organized Health Care Education/Training Program; Referring Provider Nurse Practitioner Family; Visit Provider Nurse Practitioner Family
DX: R53.83 Other fatigue (principal); G47.33 Obstructive sleep apnea (adult) (pediatric); G47.01 Insomnia due to medical condition; G47.19 Other hypersomnia; R53.82 Chronic fatigue, unspecified; G25.81 Restless legs syndrome
CPT/HCPCS: 36415; 82728; 99214

== ENCOUNTER → 2021-04-23 10:17 | Outpatient (CLI) | payer MEDICARE, MEDICAID, SELFPAY ==
--- NOTE | 2021-04-23 | DI.MG.S_ITS ---
BILATERAL DIGITAL SCREENING MAMMOGRAM 3D/2D WITH CAD: 04/23/2021 CLINICAL: Routine screening. Comparison is made to exams dated: 01/11/2020 mammogram - [facility], 07/31/2018 mammogram, and 01/06/2017 mammogram - outside location. There are scattered fibroglandular elements in both breasts. Current study was also evaluated with a Computer Aided Detection (CAD) system. No significant masses, calcifications, or other findings are seen in either breast. There has been no significant interval change. IMPRESSION: NEGATIVE There is no mammographic evidence of malignancy. A 1 year screening mammogram is recommended. This exam was interpreted at Station ID: [id number]. NOTE: For mammograms, a report in lay terms will be sent to the patient. Approximately 15% of breast malignancies will not be visualized mammographically. In the management of a palpable breast mass, a negative mammogram must not discourage biopsy of a clinically suspicious lesion. Electronically Signed By: Kris godfrey/hector:04/23/2021 14:49:25 letter sent: Normal Exam ACR BI-RADS Category 1: Negative [id number]
== END ==
PROVIDERS: Family Provider Nurse Practitioner Family; PCP Student in an Organized Health Care Education/Training Program; Referring Provider Student in an Organized Health Care Education/Training Program; Visit Provider Student in an Organized Health Care Education/Training Program
DX: Z12.31 Encounter for screening mammogram for malignant neoplasm of breast (principal)
CPT/HCPCS: 77063; 77067

== ENCOUNTER → 2021-08-26 09:22 | Outpatient (CLI) | payer MEDICARE, MEDICAID, SELFPAY ==
[2021-08-26 10:02] LABS: COVID19 -Nasal RAPID Negative (Negative)
== END ==
PROVIDERS: Family Provider Nurse Practitioner Family; PCP Student in an Organized Health Care Education/Training Program; Visit Provider Specialist
DX: Z20.822 Contact with and (suspected) exposure to COVID-19 (principal); Z01.812 Encounter for preprocedural laboratory examination
CPT/HCPCS: 87635

== ENCOUNTER → 2021-08-27 10:47 | Day surgery (SDC) | payer MEDICARE, MEDICAID, SELFPAY ==
[2021-08-26 12:48] VITALS: BMI 32.8
--- NOTE | 2021-08-27 | PATH_ITS ---
[facility] Accession Number: [id number] . 01 Material submitted: . vagina - VAGINAL BIOPSY . 01 Clinical history: . SDC CARCINOMA IN SITU OF VAGINA . 01 Diagnosis: Vagina, Biopsy: Squamous mucosa with focal atrophy, chronic inflammation, and mild squamous atypia, consistent with low-grade squamous intraepithelial lesion (mild dysplasia/VAIN 1). Negative for high-grade squamous intraepithelial lesion and invasive malignancy. MRV 09/01/2021 1558 Local . 01 Electronically signed: . Samantha Mckenna MD, Pathologist NPI- [id number] . 01 Gross description: . VAGINAL BIOPSY: Received in formalin are 3 pieces of SEGMENT OF SKIN measuring 0.9 x 0.4 x 0.3 cm and 0.6 x 0.4 x 0.1 cm which are inked, bisected and submitted in toto in 2 cassettes. /CPE 08/28/2021 0431 Local . 01 Pathologist provided ICD-10: N89.0 . 01 CPT . 714845 Specimen Comment: A courtesy copy of this report has been sent to [phone] Performed at: 01 [facility] [address] [place] [address], [place], [place] [id number] MD Shimon Nicolas MD Phone: [phone]
[2021-08-27 11:08] VITALS: BP 133/77; PULSE 79; RESP 18; TEMP 36.2; O2SAT 98; BMI 32.8
[2021-08-27] MEDS: LACTATED RINGERS 1,000 ML 42 ML IV (11:42)
--- NOTE | 2021-08-27 11:59 | PM.PREOP ---
Pre-operative Note COVID-19 COVID-19 status: Negative Result date/Date tested (Pos, Neg/Pending): 08/26/21 Criteria for continued procedure: Expected advancement of disease process Interval Note History & Physical reviewed/Exam performed by Physician: Yes Changes to H&P: No
[2021-08-27] MEDS: CEFAZOLIN 2 GM/20 ML SYRINGE IV (13:52)
--- NOTE | 2021-08-27 13:58 | SUR.OPER ---
Lithotomy on padded OR bed, head on pillow, arms secured on padded arm boards at <90 degrees abduction. Legs secured in padded yellow fins stirrups. Directed and approved by Surgeon
--- NOTE | 2021-08-27 14:21 | P.OP_ITS ---
Operative Date/Time/Diagnoses Date of procedure: 08/27/21 Time of procedure: 14:21 Pre-op diagnosis: VAIN 3 Post-op diagnosis: same Procedure & Clinicians Procedure: Colposcopy with vulvar biopsy and cauterization of vulvar dysplasia Same procedure as scheduled: Yes Indications: VAIN 3 Surgeon: Rosana Snowden Click Yes if Unassisted: Yes Anesthesia Type: General Operative Notes Findings: Four areas of thickened white epithelium at vaginal apex by colposcopy Closure Type: primary Specimen(s): other (Vaginal biopsy) Estimated Blood Loss (mL): 5 Blood products transfused: none Procedure in detail: Patient was brought to the operating room where she underwent general anesthesia. She was placed in low [facility]. Patient was draped. A check system was reviewed with the staff in the room prior to the beginning of the case. 2 g of Ancef were given to the patient. Patient had urinated prior to coming into the operating room. A speculum was placed in the vagina and ascetic acid placed on the vaginal tissue. Colposcopy was performed. The areas of thickened white tissue were noted. An area of the top of the vaginal cuff was grasped and removed with Metzenbaum scissors. The defect was repaired with 4-0 Vicryl suture. Some small areas of thickened tissue were cauterized with the Bovie at 30 w of coag. Patient went to recovery room in good condition. Counts of instruments and sponges were correct. Complications: none Post-operative Condition: stable Disposition: same day surgery Plan for aftercare: Home when awake and stable. Patient will be contacted with biopsy results and treatment and follow-up based on those results.
[2021-08-27 14:24] VITALS: BP 116/62; PULSE 79; RESP 16; O2SAT 93
[2021-08-27 14:29] VITALS: BP 118/68; PULSE 74; RESP 14; O2SAT 95
[2021-08-27 14:44] VITALS: BP 123/70; PULSE 72; RESP 16; O2SAT 95
[2021-08-27 14:45] VITALS: TEMP 36.4
[2021-08-27] MEDS: ACETAMINOPHEN 325 MG TABLET 650 MG PO (14:45)
[2021-08-27 14:58] VITALS: BP 119/64; PULSE 73; RESP 16; TEMP 36.7; O2SAT 97
--- NOTE | 2021-08-27 15:00 | SUR.PHASEI ---
1457: Pt A&Ox4, denies distress, reports pain as tolerable and ready to transfer to phase II nursing. Report given to ELZBIETA Means using SBAR with time allowed for questions. Transfer of care now.
== END | disposition home or self-care (01) ==
PROVIDERS: Family Provider Nurse Practitioner Family; PCP Student in an Organized Health Care Education/Training Program; Referring Provider Specialist; Visit Provider Specialist
PROC: (CPT 57421; principal; 2021-08-27 11:45)
DX: N89.0 Mild vaginal dysplasia (principal); F41.9 Anxiety disorder, unspecified; G25.81 Restless legs syndrome; Z80.41 Family history of malignant neoplasm of ovary; Z80.3 Family history of malignant neoplasm of breast
CPT/HCPCS: 57421; J0690; J1100; J2250; J2405; J2704; J3010

== ENCOUNTER → 2021-09-04 11:45 | Outpatient (CLI) | payer MEDICARE, MEDICAID, SELFPAY ==
--- NOTE | 2021-09-04 11:47 | DI.MRI.S_ITS ---
PROCEDURE: MR KNEE RT WO CON INDICATIONS: Pain in right knee TECHNIQUE: Noncontrast sagittal PD fast spin echo and T2 fast spin echo with fat saturation, sagittal 3-D FLASH with fat saturation; coronal T1 spin echo and PD fast spin echo with fat saturation, and axial PD fast spin echo with fat saturation through the knee. COMPARISON: [facility], CR, XR KNEE 1 OR 2 VIEWS RIGHT, 06/02/2020, 13:04. [facility], CR, XR KNEE 1 OR 2 VIEWS RIGHT, 07/13/2020, 12:50. [facility], MR, MR KNEE RT WO CON, 04/24/2020, 10:05. FINDINGS: Image quality: Excellent. Bone and joint: There is right knee total arthroplasty. Metallic artifacts obscure adjacent structures. No fracture or dislocation. There is inferior subluxation of patella. There is knee joint effusion is present. There is a small Winslow's cyst. Soft tissue: The quadriceps tendon and patellar tendon appears thickened with heterogeneous signal consistent with tendinitis. No mass or hematoma. IMPRESSION: 1. Total knee arthroplasty with metallic artifacts obscuring adjacent structures in the knee. 2. There is inferior subluxation of patella. 3. Moderate quadriceps and patellar tendinitis. 4. Small knee joint effusion. 5. Small Winslow's cyst. 6. If there is clinical suspicion for prosthesis loosening or infection, a triple phase bone scan may be helpful. Dictated by: Sai Melchor M.D. on 09/06/2021 at 9:22 Approved by: Sai Melchor M.D. on 09/06/2021 at 9:31
== END ==
PROVIDERS: Family Provider Nurse Practitioner Family; PCP Student in an Organized Health Care Education/Training Program; Referring Provider Student in an Organized Health Care Education/Training Program; Visit Provider Student in an Organized Health Care Education/Training Program
DX: S83.091A Other subluxation of right patella, initial encounter (principal); M76.51 Patellar tendinitis, right knee; M25.461 Effusion, right knee; M25.561 Pain in right knee; Z96.651 Presence of right artificial knee joint
CPT/HCPCS: 73721

== ENCOUNTER → 2021-09-28 14:33 | Outpatient (CLI) | payer MEDICARE, MEDICAID, SELFPAY ==
--- NOTE | 2021-09-28 | DI.RAD.S_ITS ---
PROCEDURE: XR KNEE RT 3V INDICATIONS: Right knee pain TECHNIQUE: 3 views of the knee were acquired. COMPARISON: [facility], MR, MR KNEE RT WO CON, 09/04/2021, 11:54. FINDINGS: Right total knee arthroplasty. No abnormal lucency surrounding the hardware. No acute complicating feature otherwise. No knee joint effusion. IMPRESSION: Normal appearance of right total knee arthroplasty. Dictated by: Jacky Goldman M.D. on 09/29/2021 at 10:00 Approved by: Jacky Goldman M.D. on 09/29/2021 at 10:02
== END ==
PROVIDERS: Family Provider Nurse Practitioner Family; PCP Family Medicine; Referring Provider Family Medicine; Visit Provider Family Medicine
DX: M25.561 Pain in right knee (principal); Z96.651 Presence of right artificial knee joint
CPT/HCPCS: 73562

== ENCOUNTER → 2022-04-05 15:37 | Outpatient (CLI) | payer MEDICARE, MEDICAID, SELFPAY ==
--- NOTE | 2022-04-05 | DI.RAD.S_ITS ---
PROCEDURE: XR LUMBAR SPINE 2-3V INDICATIONS: M54.50 TECHNIQUE: 3 views of the lumbar spine were acquired. COMPARISON: None. FINDINGS: Bones: 5 [id number] vertebrae are present. There is mild, approximately 7 millimeters of L4-L5 anterolisthesis secondary to facet hypertrophy. No vertebral body compression fractures. No suspicious bony lesions. Mild degenerative disc changes noted throughout the lumbar spine. Mild to moderate L4-L5 and L5-S1 facet arthropathy. Soft tissues: Overlying bowel gas pattern is normal. No suspicious soft tissue calcifications. IMPRESSION: 1. Multilevel degenerative disc disease. 2. Multilevel facet arthropathy. 3. No fracture. No acute osseous lesion. If symptoms and/or clinical suspicion for pathology persists, evaluation with MRI should be considered for further assessment. 4. Grade 1 L4-L5 degenerative spondylolisthesis. Dictated by: Ondina Black MD, PhD on 04/05/2022 at 16:11 Approved by: Ondina Black MD, PhD on 04/05/2022 at 16:12
== END ==
PROVIDERS: Family Provider Nurse Practitioner Family; PCP Family Medicine; Referring Provider Family Medicine; Visit Provider Family Medicine
DX: M51.36 Other intervertebral disc degeneration, lumbar region (principal); M47.816 Spondylosis without myelopathy or radiculopathy, lumbar region; M47.817 Spondylosis without myelopathy or radiculopathy, lumbosacral region; M54.50 Low back pain, unspecified
CPT/HCPCS: 72100

== ENCOUNTER → 2022-04-07 11:04 | Outpatient (CLI) | payer MEDICARE, MEDICAID, SELFPAY ==
--- NOTE | 2022-04-07 | DI.RAD.S_ITS ---
PROCEDURE: XR DEXA AXIAL SKELETON INDICATIONS: Asymptomatic menopausal state COMPARISON: None. FINDINGS: This blank DEXA report has been sent in error by the PACS system. The correct and complete report will be forthcoming in 1-2 days. Thank you for your patience and understanding. Dictated by: Jacky Goldman M.D. on 04/07/2022 at 14:31 Approved by: Jacky Goldman M.D. on 04/07/2022 at 14:31
== END ==
PROVIDERS: Family Provider Nurse Practitioner Family; PCP Family Medicine; Referring Provider Internal Medicine; Visit Provider Internal Medicine
DX: Z78.0 Asymptomatic menopausal state (principal); Z13.820 Encounter for screening for osteoporosis
CPT/HCPCS: 77080

== ENCOUNTER → 2022-04-07 11:06 | Outpatient (CLI) | payer MEDICARE, MEDICAID, SELFPAY ==
--- NOTE | 2022-04-07 11:07 | DI.US.S_ITS ---
PROCEDURE: US PELVIC COMPLETE INDICATIONS: evaluate ovaries, h/o hysterectomy TECHNIQUE: Real-time scanning was performed of the pelvic organs, with image documentation. Additional endovaginal scanning was necessary due to incomplete visualization of the adnexal and endometrial structures by transabdominal scanning. COMPARISON: None. FINDINGS: Uterus: Patient is status post hysterectomy. Ovaries: The right ovary is not visualized. The left ovary measures 3.2 x 1.4 x 2.0 cm, with a calculated ovarian volume of 4.7 cc. There is a dominant follicle within the left ovary which measures 1.8 x 1.5 x 1.7 cm. There are fewer than 12 follicles in the left ovary. Other: No pathologic free abdominal or pelvic fluid. IMPRESSION: 1. Normal sonographic appearance of the left ovary. Nonvisualization of the right ovary. We strive to produce accurate, complete, and clear reports of imaging services. To assist us in improving patient care, this report was composed using standard report templates and voice recognition software. Therefore, it may contain abnormal punctuation, insertions and/or omissions. Occasional wrong-word or sound-alike substitutions may occur. Though we review the report and make efforts to correct it, we do recommend that the report be read carefully in proper context to recognize any text inaccuracies. Dictated by: Destinee De Luna M.D. on 04/07/2022 at 15:09 Approved by: Destinee De Luna M.D. on 04/07/2022 at 15:11
== END ==
PROVIDERS: Family Provider Nurse Practitioner Family; PCP Family Medicine; Referring Provider Obstetrics & Gynecology; Visit Provider Obstetrics & Gynecology
DX: R10.31 Right lower quadrant pain (principal); Z13.820 Encounter for screening for osteoporosis; Z78.0 Asymptomatic menopausal state; Z90.710 Acquired absence of both cervix and uterus
CPT/HCPCS: 76830; 76856; 77080

== ENCOUNTER → 2022-04-29 16:19 | Outpatient (CLI) | payer MEDICARE, MEDICAID, SELFPAY ==
--- NOTE | 2022-04-29 16:20 | DI.MRI.S_ITS ---
PROCEDURE: MR LUMBAR SPINE WO CON INDICATIONS: Radiculopathy, lumbar region TECHNIQUE: Noncontrast sagittal T1 spin echo and T2 fast echo, sagittal STIR, and T2 fast spin echo through the lumbar spine. In cases with scoliosis, additional coronal T2 fast spin echo may be performed. COMPARISON: [facility], CT, CT ABDOMEN PELVIS W CON, 05/01/2020, 13:23. [facility], CR, XR LUMBAR SPINE 2-3V, 04/05/2022, 15:48. FINDINGS: Image quality: Excellent. Alignment and Curvature: There is minimal anterolisthesis seen at the L4-L5 level. Minimal levoconvex scoliotic curvature is seen. Bone Marrow: Marrow is of normal overall signal. No acute vertebral body compression fractures. Spinal Cord: Conus medullaris terminates at the L1 level. Visualized cord demonstrates normal signal and size. Paraspinous Soft Tissues: No paravertebral masses. T12-L1: Normal appearance. L1-L2: Normal appearance. L2-L3: No significant abnormality is seen. L3-L4: The disc height and disk signal are relatively well-preserved. Mild to moderate disc bulge is seen at this level. Moderate facet joint hypertrophy is seen. Mild to moderate bilateral neural foraminal narrowing can be seen. Mild to moderate central canal narrowing is seen. L4-L5: Mild loss of disc height is seen. Loss of disc signal is seen. Mild to moderate disc bulge is seen, with a central disc protrusion. At least moderate facet hypertrophy is seen. Fluid is seen within the facet joints themselves. There is at least moderate right-sided and moderate left-sided neural foraminal narrowing. Moderate central canal narrowing is seen. L5-S1: The disc height is well-preserved. Loss of disc signal is seen at this level. Mild generalized disc bulge is seen. There is a superimposed central disc protrusion. There is a focal annular fissure seen posteriorly. Moderate facet joint hypertrophy is seen. There is moderate bilateral neural foraminal narrowing seen, left worse than right. Mild central canal narrowing is seen. IMPRESSION: Multiple levels of lumbar spine degenerative change can be seen, which are worst inferiorly. Dictated by: Romario Wilcox M.D. on 04/29/2022 at 17:01 Approved by: Romario Wilcox M.D. on 04/29/2022 at 17:05
== END ==
PROVIDERS: Family Provider Nurse Practitioner Family; PCP Family Medicine; Referring Provider Pain Medicine Pain Medicine; Visit Provider Pain Medicine Pain Medicine
DX: M47.26 Other spondylosis with radiculopathy, lumbar region; M47.27 Other spondylosis with radiculopathy, lumbosacral region
CPT/HCPCS: 72148

== ENCOUNTER → 2022-05-18 08:33 | Outpatient (CLI) | payer MEDICARE, MEDICAID, SELFPAY ==
--- NOTE | 2022-05-18 | DI.MG.S_ITS ---
BILATERAL DIGITAL SCREENING MAMMOGRAM 3D/2D WITH CAD: 05/18/2022 CLINICAL: Routine screening. Comparison is made to exams dated: 04/23/2021 mammogram, 01/11/2020 mammogram - [facility], 07/31/2018 mammogram, and 01/06/2017 mammogram - outside location. There are scattered areas of fibroglandular density in both breasts (category b / 25%-50% glandular tissue). Current study was also evaluated with a Computer Aided Detection (CAD) system. No significant masses, calcifications, or other findings are seen in either breast. There has been no significant interval change. IMPRESSION: NEGATIVE There is no mammographic evidence of malignancy. A 1 year screening mammogram is recommended. Based on the Tyrer Cuzick model (a risk assessment model) the patient's lifetime risk is 4.9% and her 10 year risk is 2.5%. According to the ACR, ACS, and NCCN guidelines, an annual breast MRI exam along with mammogram is recommended if the patient's lifetime risk is 20% or greater. This exam was interpreted at Station ID: [id number]. NOTE: For mammograms, a report in lay terms will be sent to the patient. Approximately 15% of breast malignancies will not be visualized mammographically. In the management of a palpable breast mass, a negative mammogram must not discourage biopsy of a clinically suspicious lesion. Electronically Signed By: Lawrence glasgow/hector:05/18/2022 10:44:24 letter sent: Normal Exam ACR BI-RADS Category 1: Negative 3341F
== END ==
PROVIDERS: Family Provider Nurse Practitioner Family; PCP Family Medicine; Referring Provider Family Medicine; Visit Provider Family Medicine
DX: Z12.31 Encounter for screening mammogram for malignant neoplasm of breast (principal)
CPT/HCPCS: 77063; 77067

== ENCOUNTER 2022-07-14 06:43 | Day surgery (SDC) | payer MEDICARE, MEDICAID, SELFPAY ==
[2022-07-12 09:24] VITALS: BMI 33.0
[2022-07-14 07:10] VITALS: BP 129/80; PULSE 85; RESP 18; TEMP 36.4; O2SAT 95; BMI 33.0
[2022-07-14] MEDS: LACTATED RINGERS 1,000 ML 100 ML IV (07:27)
--- NOTE | 2022-07-14 07:46 | P.HPOB_ITS ---
History of Present Illness History of Present Illness Reason for admission: other (VAIN 2 of vaginal cuff) Narrative: Laurie Cervantes is a 67 year old female 4 para 4 with vain 2 of the vaginal cuff. She presents for CO2 laser vaporization of the vain 2. [facility] Medical History (Updated 06/08/22 @ 13:01 by Clarisa Grey MD) Anxiety COVID-19 Diverticulitis Diverticulosis Excessive daytime sleepiness Fatigue Fecal incontinence due to anorectal disorder History of anemia Insomnia due to medical condition ASHKAN (obstructive sleep apnea) Periodic limb movement disorder (PLMD) Rectocele Restless legs syndrome (RLS) Urge incontinence Surgical History (Updated 07/12/22 @ 09:27 by Laurie Sen RN) History of colposcopy (08/27/21) Hx of colonoscopy Family History Family/Other Loud snoring Father Loud snoring Hypertension Diabetes mellitus Heart disease Depression Mother Loud snoring Obesity Hypertension Diabetes mellitus Depression Family/Other Obesity Heart disease Depression Social History household members: none Smoking Status: Never smoker alcohol intake: current Meds Home Medications and Allergies Home Medications Medication Instructions Recorded Confirmed Type trazodone 150 mg tablet 150 mg PO BEDTIME PRN Sleep 10/30/19 07/14/22 History amitriptyline 25 mg tablet 25 mg PO DAILY 07/14/22 07/14/22 History atorvastatin 40 mg tablet 40 mg PO DAILY 07/14/22 07/14/22 History ergocalciferol (vitamin D2) 400 50 mcg PO DAILY 07/14/22 07/14/22 History unit capsule pregabalin 50 mg capsule 100 mg PO DAILY 07/14/22 07/14/22 History vitamin E 100 unit tablet 100 unit PO DAILY 07/14/22 07/14/22 History Allergies Allergy/AdvReac Type Severity Reaction Status Date / Time hydrocodone [From [place]] AdvReac itching/steve Verified 07/14/22 07:21 mbling Exam Vital Signs (past 8 hours): - 07/14/22 07:10 Temperature 97.6 F Pulse Rate 85 Respiratory Rate 18 Blood Pressure 129/80 Pulse Oximetry 95 Oxygen Delivery Method Room Air Oxygen Delivery Method Room Air Narrative Exam Narrative: HEENT: No thyromegaly, no anterior cervical or supraclavicular lymphadenopathy. Lungs:Clear to auscultation bilaterally, no wheezes. Cardiovascular: Regular rate and rhythm, no murmurs, rubs, or gallops. Abdomen: No scars. No hepatosplenomegaly. No masses palpable. External genitalia: Normal Vagina: Normal Cervix: Absent Extremities: No edema Assessment & Plan Assessment & Plan narrative: Assessment: 67-year-old 4 para 4 with VAIN II of the vaginal cuff Plan: CO2 laser vaporization of the VAIN II The risks, benefits, and alternatives to the procedure were explained to the patient. The risks including bleeding and infection. She understands these risks and agrees to proceed. A full par Q was held and consent form was signed. Time Spent With Patient Time with patient: less than 30 minutes
--- NOTE | 2022-07-14 07:50 | PM.PREOP ---
Pre-operative Note COVID-19 Criteria for continued procedure: Non-surgical alternatives not available or appropriate per current SOC Interval Note History & Physical reviewed/Exam performed by Physician: Yes Changes to H&P: No H&P completed within 30 days and has changed as indicated here:: 07/14/22
--- NOTE | 2022-07-14 07:58 | SUR.OPER ---
Lithotomy on padded OR bed, head on pillow, arms secured on padded arm boards at <90 degrees abduction. Legs secured in padded yellow fins stirrups.
[2022-07-14] MEDS: CEFAZOLIN 2 GM/100 ML PREMIX 100 ML IV (08:05)
--- NOTE | 2022-07-14 08:23 | SUR.OPER ---
Lithotomy on padded OR bed, head on pillow, arms secured on padded arm boards at <90 degrees abduction. Legs secured in padded yellow fins stirrups.
[2022-07-14] MEDS: ACETIC ACID 500 ML IRRIG IRR (08:39)
[2022-07-14] MEDS: POTASSIUM IODIDE/IODINE 473 ML SOLUTION TOP (08:41)
--- NOTE | 2022-07-14 08:42 | SUR.OPER ---
Laser settings and duration: see rep. information sheet.
[2022-07-14 08:52] VITALS: BP 127/73; PULSE 79; RESP 14; TEMP 36.3; O2SAT 94
[2022-07-14 08:56] VITALS: BP 121/65; PULSE 80; RESP 12; O2SAT 92
[2022-07-14] MEDS: OXYCODONE IR 5 MG TABLET PO (09:01)
[2022-07-14 09:02] VITALS: BP 121/65; PULSE 80; RESP 12; O2SAT 94
[2022-07-14 09:07] VITALS: BP 124/66; PULSE 76; RESP 14; TEMP 36.3; O2SAT 94
--- NOTE | 2022-07-14 09:43 | PM.GYNOP.1 ---
Operative Date/Time/Diagnoses Date of procedure: 07/14/22 Time of procedure: 09:10 Pre-op diagnosis: VAIN 2 of the vaginal cuff Post-op diagnosis: same Procedure & Clinicians Procedure: Procedures Operation Date: 07/14/22 07:45 Actual Procedure Side Surgeon p CO2 Laser Vaporization of vaginal cuff w. colposcopy Clarisa Grey MD Indications: VAIN 2 of the vaginal cuff Surgeon: Clarisa Grey Anesthesia Type: General (LMA) Operative Notes Findings: Lugol's light areas on the vaginal cuff Closure Type: not applicable Specimen(s): none Estimated blood loss (mL): 0 Blood products transfused: none Procedure in detail: After informed consent was obtained, the patient was taken to the operating room where she was placed in the dorsal supine position. After adequate LMA general anesthesia was achieved, she was placed in the dorsal lithotomy position. A colposcopy was performed. A bivalve speculum was placed into the vagina. The cervix was coated with 5% ascetic acid. Under colposcopic examination there were multiple aceto-white areas. The bivalve speculum was removed from the vagina. The area was then prepped and draped in the usual sterile fashion. A plastic coated bivalve speculum was placed into the vagina. Suction was hooked up to the bivalve speculum. There was also a second source of suction. Lugol's was applied to the vaginal cuff. Using an 18 double band hand piece, and a power of 4-5 w, the Lugol's light areas were vaporized with the CO2 laser. Total time 240.5 seconds. Total energy 988.5 joules. Five hundred micron fiber. Eighteen double been hand piece. On at 8:25 a.m.. Off at 8:44 a.m.. The bivalve speculum was removed from the vagina. Sponge, lap, and instrument counts were correct x2. The patient tolerated the procedure well, and was taken to PACU in stable condition. Complications: none Post-operative Condition: stable Disposition: PACU Plan for aftercare: Home after Recovery
== END 2022-07-14 09:34 | disposition home or self-care (01) ==
PROVIDERS: Family Provider Nurse Practitioner Family; PCP Family Medicine; Referring Provider Obstetrics & Gynecology; Visit Provider Obstetrics & Gynecology
PROC: (CPT 57061; principal; 2022-07-14 07:45)
DX: N89.1 Moderate vaginal dysplasia (principal)
CPT/HCPCS: 57061; 36415; J0690; J1100; J1885; J2250; J2405; J2704; J3010

== ENCOUNTER 2023-01-07 08:30 | Emergency (ER) | payer MEDICARE, MEDICAID, SELFPAY ==
[2023-01-07 08:35] VITALS: BP 103/71; PULSE 95; RESP 16; TEMP 35.9; O2SAT 95; O2SAT 96; BMI 30.4
[2023-01-07 08:37] VITALS: BP 103/71; PULSE 95; O2SAT 96
--- NOTE | 2023-01-07 08:37 | ED_ITS ---
HPI - Abdominal Pain General Chief Complaint: Abdominal Pain Stated Complaint: Sharp ABD pain and lower back pain Time Seen by Provider: 01/07/23 08:37 Source: patient, RN notes reviewed and old records reviewed Mode of arrival: Ambulatory Limitations: no limitations History of Present Illness HPI narrative: 67-year-old female with history of insomnia, dyslipidemia, diverticulitis and neuropathy. Patient presents with complaint of about 6:00 p.m. last night patient started having lower abdominal pain she thought it started a little bit more in the left but she states it is really been both sides and radiating to her back on both sides. Patient states no fevers or chills. No chest pain or shortness of breath, no lightheadedness or passing out. No nausea or vomiting. She has not had a bowel movement for about a day but she states that is not atypical. Patient states had normal soft bowel movements the day before. No bright red blood or melanotic stools. Denies dysuria, urgency or frequency. No vaginal bleeding or discharge. No rash or skin changes. Patient states she has had diverticulitis in the past she thought initially was somewhat similar but the location is a bit atypical. She did try Tylenol at 3:00 a.m. without any improvement. Patient states she takes amitriptyline, trazodone, pregabalin and a statin daily for insomnia, neuropathy and dyslipidemia. Denies any prior surgeries. No known drug allergies. Denies tobacco, rare alcohol, no recreational drugs or illicit. Dr. Lee is her primary care physician. Related Data Home Medications Medication Instructions Recorded Confirmed trazodone 150 mg tablet 150 mg PO BEDTIME PRN Sleep 10/30/19 12/14/22 amitriptyline 25 mg tablet 25 mg PO DAILY 07/14/22 12/14/22 atorvastatin 40 mg tablet 40 mg PO DAILY 07/14/22 12/14/22 ergocalciferol (vitamin D2) 400 50 mcg PO DAILY 07/14/22 12/14/22 unit capsule pregabalin 50 mg capsule 100 mg PO DAILY 07/14/22 12/14/22 vitamin E 100 unit tablet 100 unit PO DAILY 07/14/22 12/14/22 Previous Rx's Medication Instructions Recorded amoxicillin 875 mg-potassium 1 tab PO BID #20 tabs 01/07/23 clavulanate 125 mg tablet tramadol 50 mg tablet 50 mg PO Q6H PRN pain #10 tabs 01/07/23 Allergies Allergy/AdvReac Type Severity Reaction Status Date / Time hydrocodone [From [place]] AdvReac itching/steve Verified 01/07/23 08:38 mbling Review of Systems Review of Systems ROS Unobtainable: All systems reviewed & are unremarkable except as noted in HPI and below Patient History Medical History Excessive daytime sleepiness Restless legs syndrome (RLS) Periodic limb movement disorder (PLMD) COVID-19 Insomnia due to medical condition History of anemia Fatigue Diverticulitis Diverticulosis ASHKAN (obstructive sleep apnea) Anxiety Urge incontinence Fecal incontinence due to anorectal disorder Rectocele Surgical History History of colposcopy (08/27/21) Hx of colonoscopy Family History Family/Other Loud snoring Father Loud snoring Hypertension Diabetes mellitus Heart disease Depression Mother Loud snoring Obesity Hypertension Diabetes mellitus Depression Family/Other Obesity Heart disease Depression Social History household members: none Smoking Status: Never smoker alcohol intake: current Smoking Status: Never smoker alcohol intake frequency: a few times a week Substance Use Type: does not use Exam Narrative Exam Narrative: GENERAL: Alert and oriented x three, well-appearing female in mild distress. HEENT: Head normocephalic, atraumatic, EOMI, pupils reactive, face symmetric, moist mucous membranes NECK: Supple, full range of motion CARDIOVASCULAR: Regular rate and rhythm without murmurs, rubs or gallops. RESPIRATORY: Breath sounds equal bilaterally, no wheezes rales or rhonchi. ABDOMEN: Soft, patient has tenderness generalized throughout little bit more on the right than left but upper and lower abdomen bilaterally. Normoactive bowel sounds all 4 quadrants. No guarding. positive for rebound, no rigidity, no mass : No CVA tenderness bilaterally. EXTREMITIES: Normal range of motion, no clubbing or edema. Neurovascularly intact NEUROLOGICAL: Cranial nerves II through XII grossly intact. Moving all extremities SKIN: Warm, dry, no petechiae, no rashes or lesions. Initial Vital Signs Initial Vital Signs: Vital Signs Temperature 96.6 F L 01/07/23 08:35 Pulse Rate 95 H 01/07/23 08:35 Respiratory Rate 16 01/07/23 08:35 Blood Pressure 103/71 01/07/23 08:35 Pulse Oximetry 96 01/07/23 08:35 Oxygen Delivery Method Room Air 01/07/23 08:35 Course Orders Ordered: ED Orders 01/07/23 10:16 Urine Culture Stat Urine Microscopic Stat Discontinued Medications Acetaminophen (Acetaminophen 325 Mg Tablet) 975 mg PO NOW ONE Stop: 01/07/23 10:18 Last Admin: 01/07/23 10:20 Dose: 975 mg Documented By: SILVERIO Amoxicillin/Clavulanate Potassium (Amoxicillin/Clav 875/125 Mg) 1 tab PO NOW ONE Stop: 01/07/23 10:17 Last Admin: 01/07/23 10:21 Dose: 1 tab Documented By: SILVERIO Sodium Chloride (Normal Saline 0.9%) 1,000 mls @ 1,000 mls/hr IV BOLUS ONE Stop: 01/07/23 09:55 Last Infusion: 01/07/23 10:35 Dose: Infused Documented By: Admin: 01/07/23 09:22 Dose: 1,000 mls/hr Documented By: MARY Ketorolac Tromethamine (Ketorolac 30 Mg/Ml Vial) 15 mg IV NOW ONE Stop: 01/07/23 08:57 Last Admin: 01/07/23 09:21 Dose: 15 mg Documented By: AMRY Vital Signs Vital signs: Vital Signs - 8 hr 01/07/23 10:30 01/07/23 10:30 Pulse Rate 81 Blood Pressure 143/65 H Pulse Oximetry 95 MDM - Abdominal Pain Lab Data 01/07/23 08:45 01/07/23 08:45 Labs: Lab Results 01/07/23 01/07/23 Range/Units 08:45 10:16 WBC 11.4 H (4.5-11.0) X10^3/uL RBC 4.57 (4.0-5.2) X10^6/uL Hgb 13.9 (12.0-16.0) g/dL Hct 41.0 (36-46) % MCV 89.8 (80-100) fL MCH 30.3 (26-34) PG MCHC 33.8 (30-36) % RDW 14.4 (11.6-14.8) % Plt Count 249 (150-400) X10^3/uL Neut % (Auto) 76.9 H (50-75) % Lymph % (Auto) 14.6 L (25-40) % [place]linger % (Auto) 6.9 (3-14) % Eos % (Auto) 1.0 L (2-4) % Baso % (Auto) 0.6 (0-2) % Neut # (Auto) 8800 H (9784-2700) /uL Lymph # (Auto) 1700 (9370-1361) /uL Bollinger # (Auto) 800 (0-900) /uL Eos # (Auto) 100 (0-450) /uL Baso # (Auto) 100 (0-100) /uL Sodium 138 (137-145) mmol/L Potassium 3.8 (3.4-5.1) mmol/L Chloride 101 (98-107) mmol/L Carbon Dioxide 30 (22-32) mmol/L BUN 19 H (7-17) mg/dL Creatinine 0.58 (0.52-1.04) mg/dL Estimated GFR > 60 (>60) mL/min BUN/Creatinine Ratio 32.8 H (6-22) Glucose 113 H (80-110) mg/dL Calcium 9.2 (8.4-10.2) mg/dL Total Bilirubin 0.6 (0.2-1.3) mg/dL AST 28 (14-36) IU/L ALT 39 H (<35) IU/L Alkaline Phosphatase 119 (38-126) U/L Total Protein 7.3 (6.3-8.2) g/dL Albumin 4.3 (3.5-5.0) g/dL Globulin 3.0 (1.7-4.1) g/dL Albumin/Globulin Ratio 1.4 (1.0-2.8) Lipase 94 (23-300) U/L Urine RBC 0-1/hpf (0-5/HPF) Urine WBC 1-5/hpf (0-5/HPF) Ur Squamous Epith Cells 1-5 /hpf (0-5/HPF) Amorphous Sediment 1+ Urine Bacteria Occasional (0-1) (None) Point of care testing: Urine Dip Bedside Urine Glucose Negative Bedside Urine Bilirubin - Negative Bedside Urine Ketone - Negative Urine Specific [place] 1.000 Bedside Urine Occult Blood - Negative Bedside Urine pH 6.5 Bedside Urine Protein - Negative Bedside Urine Urobilinogen - Negative Bedside Urine Nitrite - Negative Bedside Urine Leukocytes +/- [address] scan - abdomen/pelvis: Radiologist's Impression: [address] [id number] [address] Scan Report? Signed Patient: Laurie Cervantes MR#: [id number] : 1955 Acct:[id number] Age/Sex: 67 / F Date of Service: 01/07/23 Loc: ED Accession Number: [id number]? ? Procedure: CT abdomen pelvis w con Ordering Provider: Ni Tapia D.O. PROCEDURE:? CT ABDOMEN PELVIS W CON ? INDICATIONS:? abd pain, generalized, hx diveriticulitis. ? TECHNIQUE:?? After the administration of intravenous contrast, axial sections acquired from the lung? bases to the pubic symphysis.? Coronal and sagittal reformats were performed.? For? radiation dose reduction, the following was used:? automated exposure control, adjustment? of mA and/or kV according to patient size.?? ? COMPARISON:? [facility], CT, CT ABDOMEN PELVIS W CON, 05/01/2020, 13:23. ? FINDINGS:?? Image quality:? Excellent.?? ? Lung bases:? Unremarkable. Heart:? No significant findings. ? ABDOMEN: Liver:? Stable left hepatic cyst.? Hepatic steatosis.?? Gallbladder:? Within the gallbladder there is a hyperdense mass favored to represent a? large gallstone, unchanged. Biliary ducts:? Unremarkable.? ?? Pancreas:? Unremarkable.? ?? Spleen:? Unremarkable.? ?? Adrenal Glands:? Unremarkable.? ?? Kidneys and Ureters:? Unremarkable.? Stomach and Bowel:? The stomach and small bowel loops are unremarkable.? Within the left? lower quadrant at the junction of the descending and sigmoid colon there are pericolonic? inflammatory changes with numerous colonic diverticula.? No organized fluid collection.?? No free air identified. Peritoneum:? No abnormal intraperitoneal fluid.? No free air.?? ? Ventral Wall:? ?No hernias.?? Abdominal Nodes:? No retroperitoneal or mesenteric adenopathy by size criteria.?? Vessels:? Aorta and inferior vena cava are normal in size.?? ? PELVIS: Pelvic Organs:? Status post hysterectomy.? ?? Bladder:? Unremarkable.? ?? Pelvic Nodes: No enlarged lymph nodes.?? Miscellaneous: No hernias are seen.? Bones:? Unremarkable.? IMPRESSION:?? Acute simple diverticulitis of the proximal sigmoid colon. Stable hepatic cyst. Hepatic steatosis. Density within the gallbladder likely represents gallstone, unchanged.? Dictated by: Oli Goldman M.D. on 01/07/2023 at 8:41? ? ? Approved by: Oli Goldman M.D. on 01/07/2023 at 8:49? ? ECG Data Attestation: I personally reviewed and interpreted this ECG as follows: Prior ECG tracings: not available for review Interpretation: Sinus rhythm, rate 87 ID 160 QRS 66 QTC of 423. LVH. No acute ST elevation depression patient. No priors for comparison. MDM Narrative Medical decision making narrative: 67-year-old female presents with what she describes as lower abdominal pain radiating to bilateral flanks. Patient is tender throughout her abdomen bit more than I would expect. She is overall well-appearing, vitals show rate of 95 pressures little soft at 103. Plan for abdominal labs, urine, CT abdomen pelvis patient has had prior diverticulitis suspect could have recurrence or colitis or other cause she is nontender in the flanks making pyelonephritis seem less likely. Workup shows she has a white count of 11, normal hemoglobin appropriate platelets leftward shift. Electrolytes are appropriate BUN 19 creatinine normal glucose is 113 with normal LFTs except for an ALT of 39. Patient received fluids and Toradol, patient still has some pain. She does not have a ride was given Tylenol. CT abdomen pelvis shows acute diverticulitis of the proximal sigmoid colon no abscess, no perforation stable hepatic cyst hepatic steatosis density in the gallbladder likely gallstone unchanged from priors with no other acute changes. Patient states she could probably give a urine sample but she would prefer to return home. Suspect her symptoms are more related to the diverticulitis on her CT. But discussed we should check a sample. Patient prefers to return home. Discussed with patient appropriate for discharge on oral antibiotics. Plan for Augmentin twice daily. Patient is agreeable to plan. Plan for short course of oral pain medication as well with return precautions. Reviewed all patient's CT findings. No additional questions. Discharge Plan Departure Patient Disposition: Home Clinical Impression: Diverticulitis, Hepatic cyst, Hepatic steatosis Instructions: DI for Diverticulitis Activity Restrictions/Additional Instructions: Your workup today shows diverticulitis, there is noted to be a cyst in her liver which is stable from prior imaging, some hepatic steatosis or fatty liver and a density in the gallbladder which is likely a gallstone and seen on your prior images. Please take antibiotics until completed. You may take Tylenol up to a 1000 mg every 6 hours and/or ibuprofen up to 600 mg every 6 hours as needed for pain. Prescription for pain medication is included. You may take 1-2 tablets every 6 hours as needed. This medication can make you sleepy do not drive, perform hazardous activities or make any major decisions while taking it. This medication will make you constipated please take a stool softener once to twice daily until stools are soft and regular. Prescription sent to [facility] in [place]. Please return for fevers, rapidly worsening abdominal back or flank pain, persistent vomiting, new back or bloody stools or other new or concerning changes. Prescriptions: New amoxicillin-pot clavulanate 875-125 mg tablet 1 tab PO BID Qty: 20 0RF tramadol 50 mg tablet 50 mg PO Q6H PRN (Reason: pain) Qty: 10 0RF No Action trazodone 150 mg tablet 150 mg PO BEDTIME PRN (Reason: Sleep) atorvastatin 40 mg tablet 40 mg PO DAILY ergocalciferol (vitamin D2) 400 unit Capsule 50 mcg PO DAILY amitriptyline 25 mg tablet 25 mg PO DAILY Patient Comments: take 1/2 tablet by mouth at bedtime for 6 days then INCREASE to 1 tablet vitamin E 100 unit Tablet 100 unit PO DAILY pregabalin 50 mg capsule 100 mg PO DAILY Patient Comments: take 1 capsule by mouth every 8 hours AFTER TITRATION DIRECTED for 30 DAYS Referrals: Anastasia Lee MD [Primary Care Provider] - Stand Alone Forms: Patient Portal/API
--- NOTE | 2023-01-07 08:57 | DI.CT.S_ITS ---
PROCEDURE: CT ABDOMEN PELVIS W CON INDICATIONS: abd pain, generalized, hx diveriticulitis. TECHNIQUE: After the administration of intravenous contrast, axial sections acquired from the lung bases to the pubic symphysis. Coronal and sagittal reformats were performed. For radiation dose reduction, the following was used: automated exposure control, adjustment of mA and/or kV according to patient size. COMPARISON: [facility], CT, CT ABDOMEN PELVIS W CON, 05/01/2020, 13:23. FINDINGS: Image quality: Excellent. Lung bases: Unremarkable. Heart: No significant findings. ABDOMEN: Liver: Stable left hepatic cyst. Hepatic steatosis. Gallbladder: Within the gallbladder there is a hyperdense mass favored to represent a large gallstone, unchanged. Biliary ducts: Unremarkable. Pancreas: Unremarkable. Spleen: Unremarkable. Adrenal Glands: Unremarkable. Kidneys and Ureters: Unremarkable. Stomach and Bowel: The stomach and small bowel loops are unremarkable. Within the left lower quadrant at the junction of the descending and sigmoid colon there are pericolonic inflammatory changes with numerous colonic diverticula. No organized fluid collection. No free air identified. Peritoneum: No abnormal intraperitoneal fluid. No free air. Ventral Wall: No hernias. Abdominal Nodes: No retroperitoneal or mesenteric adenopathy by size criteria. Vessels: Aorta and inferior vena cava are normal in size. PELVIS: Pelvic Organs: Status post hysterectomy. Bladder: Unremarkable. Pelvic Nodes: No enlarged lymph nodes. Miscellaneous: No hernias are seen. Bones: Unremarkable. IMPRESSION: Acute simple diverticulitis of the proximal sigmoid colon. Stable hepatic cyst. Hepatic steatosis. Density within the gallbladder likely represents gallstone, unchanged. Dictated by: Oli Goldman M.D. on 01/07/2023 at 8:41 Approved by: Oli Goldman M.D. on 01/07/2023 at 8:49
[2023-01-07 09:00] VITALS: BP 142/63; PULSE 87
[2023-01-07 09:01] LABS: Add Manual Diff / Slide Review NO; Basophils Absolute Auto 100 /uL (0-100); Basophils Percent Auto 0.6 % (0-2); Eosinophils Absolute Auto 100 /uL (0-450); Hemoglobin 13.9 g/dL (12.0-16.0); Lymphocytes Absolute Auto 1700 /uL (1100-4500); Lymphocytes Percent Auto 14.6 % (25-40); Mean Corpuscular HGB Conc 33.8 % (30-36); Mean Corpuscular Hemoglobin 30.3 PG (26-34); Mean Corpuscular Volume 89.8 fL (80-100); Monocytes Absolute Auto 800 /uL (0-900); Monocytes Percent Auto 6.9 % (3-14); Neutrophils Absolute Auto 8800 /uL (1500-7000); Neutrophils Percent Auto 76.9 % (50-75); Platelet Count 249 X10^3/uL (150-400); Red Blood Cell Count 4.57 X10^6/uL (4.0-5.2); Red Cell Distribution Width 14.4 % (11.6-14.8); White Blood Cell Count 11.4 X10^3/uL (4.5-11.0)
[2023-01-07 09:11] LABS: Alanine Aminotransferase 39 IU/L (<35); Albumin 4.3 g/dL (3.5-5.0); Albumin Globulin Ratio 1.4 (1.0-2.8); Alkaline Phosphatase 119 U/L (38-126); Aspartate Aminotransferase 28 IU/L (14-36); BUN Creatinine Ratio 32.8 (6-22); Bilirubin Total 0.6 mg/dL (0.2-1.3); Blood Urea Nitrogen 19 mg/dL (7-17); Calcium 9.2 mg/dL (8.4-10.2); Carbon Dioxide 30 mmol/L (22-32); Chloride 101 mmol/L (98-107); Estimated Glomerular Filt Rate > 60 mL/min (>60); Glucose 113 mg/dL (80-110); HEMOLYSIS < 15 (0-50); Lipase 94 U/L (23-300); Potassium 3.8 mmol/L (3.4-5.1); Sodium 138 mmol/L (137-145); Total Protein 7.3 g/dL (6.3-8.2)
[2023-01-07] MEDS: KETOROLAC 30 MG/ML VIAL 15 MG IV (09:21)
[2023-01-07] MEDS: SODIUM CHLORIDE 0.9% 1,000 ML 1000 ML IV (09:22)
[2023-01-07 09:30] VITALS: BP 129/66; PULSE 85; O2SAT 97
[2023-01-07 10:00] VITALS: BP 140/65; PULSE 87; O2SAT 98
[2023-01-07] MEDS: ACETAMINOPHEN 325 MG TABLET 975 MG PO (10:20)
[2023-01-07] MEDS: AMOXICILLIN/CLAV 875/125 MG 1 TAB PO (10:21)
[2023-01-07 10:30] VITALS: BP 143/65; PULSE 81; O2SAT 95
[2023-01-07 10:47] LABS: Bacteria Urine Occasional (0-1); RBC Urine 0-1/HPF (0-5/HPF); Squamous Epithelial Cell Urine 1-5 /HPF (0-5/HPF); WBC Urine 1-5/HPF (0-5/HPF)
[2023-01-07 10:48] LABS: Amorphous Sediment Urine 1+
== END 2023-01-07 10:43 | disposition home or self-care (01) ==
PROVIDERS: Emergency Provider Emergency Medicine; Family Provider Nurse Practitioner Family; PCP Family Medicine
DX: K57.92 Diverticulitis of intestine, part unspecified, without perforation or abscess without bleeding (principal); K76.0 Fatty (change of) liver, not elsewhere classified; K76.89 Other specified diseases of liver; Z79.899 Other long term (current) drug therapy
CPT/HCPCS: 36415; 74177; 80053; 81003; 81015; 83690; 85025; 87086; 93005; 93010; 96361; 96374; 99284; J1885; Q9967

== ENCOUNTER → 2023-01-31 12:21 | Outpatient (CLI) | payer MEDICARE, MEDICAID, SELFPAY ==
--- NOTE | 2023-01-31 | DI.US.S_ITS ---
PROCEDURE: US ABDOMEN LIMITED INDICATIONS: GALLSTONES AND HEPATIC STEATOSIS TECHNIQUE: Real-time focused scanning was performed of the abdomen, with image documentation. COMPARISON: [facility], CT, CT ABDOMEN PELVIS W CON, 01/07/2023, 9:15. [facility], US, US ABDOMEN COMPLETE, 05/22/2020, 14:01. FINDINGS: The liver is diffusely echogenic consistent with diffuse fatty change. No focal mass identified. There is a large gallstone in the gallbladder, measuring 2.2 cm. There is no gallbladder wall thickening. There is no pain on examination. No biliary ductal dilatation. Common bile duct measures 4.4 mm. Visualized portions of the pancreas are unremarkable. IMPRESSION: 1. Diffuse hepatic steatosis. 2. Cholelithiasis. Dictated by: Gerson Dahl M.D. on 01/31/2023 at 13:56 Approved by: Gerson Dahl M.D. on 01/31/2023 at 13:58
== END ==
PROVIDERS: Family Provider Nurse Practitioner Family; PCP Family Medicine; Referring Provider Family Medicine; Visit Provider Family Medicine
DX: K80.20 Calculus of gallbladder without cholecystitis without obstruction (principal); K76.0 Fatty (change of) liver, not elsewhere classified
CPT/HCPCS: 76705

== ENCOUNTER 2023-03-29 07:25 | Day surgery (SDC) | payer MEDICARE, MEDICAID, SELFPAY ==
[2023-03-22 07:56] VITALS: BMI 33.4
--- NOTE | 2023-03-28 08:54 | P.HP_ITS ---
History of Present Illness History of Present Illness Chief complaint: SDC Narrative: Helen is a 67 year old woman PMH obesity, obstructive sleep apnea here for elective laparoscopic cholecystectomy dx biliary colic. No interval changes in health. Please refer to H&P February 2023 for further detail [facility] Medical History (Updated 03/22/23 @ 08:00 by Laurie Sen RN) Depression Excessive daytime sleepiness Restless legs syndrome (RLS) Periodic limb movement disorder (PLMD) COVID-19 Insomnia due to medical condition History of anemia Fatigue Diverticulitis Diverticulosis ASHKAN (obstructive sleep apnea) Anxiety Urge incontinence Fecal incontinence due to anorectal disorder Rectocele Surgical History (Updated 03/22/23 @ 08:01 by Laurie Sen RN) History of gynecologic surgery (07/14/22) H/O: hysterectomy History of colposcopy (08/27/21) Hx of colonoscopy Family History Family/Other Loud snoring Father Loud snoring Hypertension Diabetes mellitus Heart disease Depression Mother Loud snoring Obesity Hypertension Diabetes mellitus Depression Ovarian cancer Family/Other Obesity Heart disease Depression Grandmother Breast cancer Social History marital status: unmarried,single household members: none lives independently: Yes occupational status: previously employed Smoking Status: Never smoker alcohol intake: current Meds Home Medications and Allergies Home Medications Medication Instructions Recorded Confirmed Type trazodone 150 mg tablet 150 mg PO BEDTIME PRN Sleep 10/30/19 03/29/23 History amitriptyline 25 mg tablet 100 mg PO DAILY 07/14/22 03/29/23 History atorvastatin 40 mg tablet 40 mg PO DAILY 07/14/22 03/29/23 History vitamin E 100 unit tablet 100 unit PO DAILY 07/14/22 02/22/23 History aspirin 81 mg tablet,delayed 81 mg PO DAILY 02/22/23 03/29/23 History release bupropion HCl 300 mg 24 hr tablet, 300 mg PO QAM 02/22/23 03/29/23 History extended release cholecalciferol (vitamin D3) PO 02/22/23 02/22/23 History ferrous sulfate PO 02/22/23 02/22/23 History multivitamin [Daily Multi-Vitamin] PO 02/22/23 02/22/23 History pregabalin 200 mg capsule 200 mg PO TID 02/22/23 03/29/23 History Allergies Allergy/AdvReac Type Severity Reaction Status Date / Time hydrocodone [From [place]] AdvReac itching/steve Verified 03/29/23 07:55 mbling Exam Narrative Exam Narrative: General adult woman alert oriented no acute distress Chest nonlabored respiration Extremities warm well perfused Assessment & Plan Assessment and plan (1) Gallstone: Qualifiers: Cholecystitis presence: without cholecystitis Biliary obstruction: without biliary obstruction Qualified Code(s): K80.20 - Calculus of gallbladder without cholecystitis without obstruction Status: Acute Assessment & Plan narrative: Ms Cervantes is a 67 year old woman with biliary colic here for laparoscopic cholecystectomy. We reviewed the major risks of cholecystectomy including bleeding, infection and rare but serious events such as bile leak, biliary injury, bowel injury, thromboembolism, heart attack, stroke and . Her questions have been answered and she provides written and verbal consent to proceed.
[2023-03-29] VITALS (9 sets, daily range): BP systolic 119–134; BP diastolic 70–82; PULSE 83–104; RESP 8–54; TEMP 35.9–36.5; O2SAT 13–98; BMI 34.0
--- NOTE | 2023-03-29 | PATH_ITS ---
[facility] Accession Number: [id number] No. of containers..01 Tissue . 01 Material submitted: . gallbladder - GALLBLADDER . 01 Diagnosis: Gallbladder, Cholecystectomy: Mild chronic calculous cholecystitis with cholesterolosis and reactive changes. Focal intestinal metaplasia present. Negative for dysplasia and malignancy. Benign lymph node of cystic duct with reactive changes. . MAREK 04/05/2023 1324 Local . 01 Electronically signed: . Basilia Miranda MD, Pathologist NPI- [id number] . 01 Gross description: . The specimen is received in formalin labeled with the patient's name, , and gallbladder, consists of an intact gallbladder measuring 7.3 x 3.6 x 3.2 cm. The external surface is unremarkable. A denny pericystic lymph node candidate is identified measuring 0.7 cm in greatest dimension, and the cystic duct margin is inked blue. The lumen contains green viscous bile with a yellow roughened calculus measuring 2.3 cm in greatest dimension, not grossly obstructing the cystic duct. The mucosa is green and velvety with no yellow discoloration, polyps, or lesions identified. The alonzo average 0.2 cm thick. Chili Maker sections to include the cystic duct margin, intact lymph node candidate, and full thickness sections are submitted in cassettes A1-A3. ([id number]) /MRV 04/05/2023 1150 Local . 01 Pathologist provided ICD-10: K80.20 . 01 CPT . 870516 Specimen Comment: A courtesy copy of this report has been sent to [phone] Performed at: 01 [facility] [address] [place] [address] [address], [place], [place] [id number] MD Shimon Nicolas MD Phone: [phone]
[2023-03-29] MEDS: LACTATED RINGERS 1,000 ML 21 ML IV (08:11)
--- NOTE | 2023-03-29 08:42 | PM.OP.1 ---
Operative Date/Time/Diagnoses Date of procedure: 03/29/23 Time of procedure: 08:42 Pre-op diagnosis: Biliary colic Post-op diagnosis: same Procedure & Clinicians Procedure: Laparoscopic cholecystectomy Same procedure as scheduled: Yes Indications: 67-year-old woman with symptoms and radiographic findings consistent with biliary colic Surgeon: Perez Demarco Click Yes if Unassisted: No Anesthesia Type: General Operative Notes Findings: Large mobile gallstone Specimen(s): other (Gallbladder) Procedure in detail: The patient was placed supine on the table and bilateral lower extremity compression devices were applied. Anesthesia was induced they were intubated with an endotracheal tube and received 2g of Ancef. A time-out was performed. They were prepped and draped in sterile fashion. An infraumbilical incision was made. The fascia was elevated incised and the abdomen was entered atraumatically. A blunt tip 12mm balloon trocar was then inserted, pneumoperitoneum was established and inspection of the abdomen demonstrated no evidence of injury. They were placed head up and right side up and then a 11 mm port was placed high in the epigastrium and two 5mm in the right upper quadrant. The gallbladder was grasped by the fundus and retracted over the liver and retracted laterally by the infundibulum. Using electrocautery the lateral plane between the gallbladder and the liver was opened towards the fundus. The gallbladder was then retracted laterally and the medial plane was developed in the same manner. With the gallbladder mobilized the bottom of the cystic plate was visualized. The hepatocystic triangle was meticulosly skeletonized with blunt dissection of fat and fibrous tissue from both the front and the back. Only two structures were then clearly seen entering the gallbladder the cystic duct and the cystic artery. With the critical view of safety fully established the cystic duct was clipped twice proximally and once distally using the 10 mm Weck hemoclip applied under direct visualization and then sharply divided. The cystic artery was divided in the same fashion. The gallbladder was removed from the liver bed using electro cautery. The liver bed was then inspected for hemostasis and this was achieved. The abdomen was irrigated with sterile saline and inspection was made that showed the clips in good position. The specimen was removed using Endo-Catch. The gallbladder was palpated and there was a large mobile stone within it. The abdomen was desufflated. The umbilical fascia was closed with 0 Vicryl in a [id number] fashion under direct visualization. Skin incisions were irrigated and closed with 4-0 Monocryl. 30 ml of 0.25% bupivacaine was infiltrated into the subcutaneous tissue of the incisions. The wounds were sealed with Dermabond. Patient emerged from anesthesia was extubated and transferred to recovery in stable condition. The sponge and instrument count at the end of the operation was correct. Complications: none Post-operative Condition: stable Disposition: same day surgery
[2023-03-29] MEDS: CEFAZOLIN 2 GM/100 ML PREMIX 100 ML IV (09:00)
--- NOTE | 2023-03-29 09:23 | SUR.OPER ---
Supine on padded OR bed, head on pillow, safety belt at thigh, left arm padded and tucked at side. Right arm secured on padded arm board <90 degrees abduction. Legs uncrossed. Padded footboard in place. Tape over blanket to secure lower legs.
[2023-03-29] MEDS: BUPIVACAINE 0.25% (PF) VIAL 30 ML INJ (09:49)
== END 2023-03-29 12:00 | disposition home or self-care (01) ==
PROVIDERS: Family Provider Nurse Practitioner Family; PCP Family Medicine; Referring Provider Surgery; Visit Provider Surgery
PROC: 0FT44ZZ Resection of Gallbladder, Percutaneous Endoscopic Approach (ICD-10-PCS; CPT 47562; principal; 2023-03-29 08:45)
DX: K80.10 Calculus of gallbladder with chronic cholecystitis without obstruction (principal); G47.33 Obstructive sleep apnea (adult) (pediatric)
CPT/HCPCS: 47562; J0690; J1100; J1170; J1885; J2250; J2405; J3010

== ENCOUNTER → 2023-05-20 12:49 | Outpatient (CLI) | payer MEDICARE, MEDICAID, SELFPAY ==
--- NOTE | 2023-05-20 12:50 | DI.MG.S_ITS ---
BILATERAL DIGITAL SCREENING MAMMOGRAM 3D/2D WITH CAD: 05/20/2023 CLINICAL: Routine screening. Comparison is made to exams dated: 05/18/2022 mammogram, 04/23/2021 mammogram, and 01/11/2020 mammogram - [facility]. There are scattered areas of fibroglandular density in both breasts (category b / 25%-50% glandular tissue). Current study was also evaluated with a Computer Aided Detection (CAD) system. There is a stable benign mass in the left breast. There also are benign calcifications in the right breast. Additionally, there are stable benign calcifications in the left breast. No significant masses, calcifications, or other findings are seen in either breast. There has been no significant interval change. IMPRESSION: BENIGN There is no mammographic evidence of malignancy. A 1 year screening mammogram is recommended. Based on the Tyrer Cuzick model (a risk assessment model) the patient's lifetime risk is 4.7% and her 10 year risk is 2.4%. According to the ACR, ACS, and NCCN guidelines, an annual breast MRI exam along with mammogram is recommended if the patient's lifetime risk is 20% or greater. This exam was interpreted at Station ID: [id number]. NOTE: For mammograms, a report in lay terms will be sent to the patient. Approximately 15% of breast malignancies will not be visualized mammographically. In the management of a palpable breast mass, a negative mammogram must not discourage biopsy of a clinically suspicious lesion. Electronically Signed By: Destinee poole/hector:05/22/2023 11:39:26 letter sent: Normal Exam ACR BI-RADS Category 2: Benign Finding(s) 3342F
== END ==
LOC: MAMMO 12:50
PROVIDERS: Family Provider Nurse Practitioner Family; PCP Family Medicine; Referring Provider Family Medicine; Visit Provider Family Medicine
DX: Z12.31 Encounter for screening mammogram for malignant neoplasm of breast (principal); R92.323 Mammographic fibroglandular density, bilateral breasts
CPT/HCPCS: 77063; 77067

== ENCOUNTER 2023-07-22 12:54 | Emergency (ER) | payer MEDICARE, MEDICAID, SELFPAY ==
[2023-07-22 12:56] VITALS: BP 146/81; PULSE 91; RESP 16; TEMP 36.9; O2SAT 94; BMI 33.4
--- NOTE | 2023-07-22 13:58 | ED.WOUNDLAC ---
HPI - Wound/Laceration General Chief Complaint: Wound/Laceration Stated Complaint: lEFT THUMB CUT Time Seen by Provider: 07/22/23 13:55 Source: patient Mode of arrival: Ambulatory Limitations: no limitations History of Present Illness HPI narrative: 68-year-old female on aspirin daily who presents with complaint of laceration to her left thumb. Patient states she accidentally cut the base left index finger but she states that is pretty superficial. Patient states her tetanus is up-to-date. Patient denies any other injuries. She does not have any drug allergies besides adverse reaction hydrocodone. No numbness, tingling or weakness. She states it does gape in his more painful when she fully extends her thumb. Related Data Home Medications Medication Instructions Recorded Confirmed trazodone 150 mg tablet 150 mg PO BEDTIME PRN Sleep 10/30/19 07/21/23 amitriptyline 25 mg tablet 100 mg PO DAILY 07/14/22 07/21/23 atorvastatin 40 mg tablet 40 mg PO DAILY 07/14/22 07/21/23 vitamin E 100 unit tablet 100 unit PO DAILY 07/14/22 07/21/23 aspirin 81 mg tablet,delayed 81 mg PO DAILY 02/22/23 07/21/23 release bupropion HCl 300 mg 24 hr tablet, 300 mg PO QAM 02/22/23 07/21/23 extended release cholecalciferol (vitamin D3) PO 02/22/23 07/21/23 ferrous sulfate PO 02/22/23 07/21/23 multivitamin [Daily Multi-Vitamin] PO 02/22/23 07/21/23 pregabalin 200 mg capsule 200 mg PO TID 02/22/23 07/21/23 Previous Rx's Medication Instructions Recorded acetaminophen 325 mg capsule 650 mg (2 x 325 mg) PO QID PRN 03/29/23 (Tylenol) pain #60 caps fluorouracil 5 % topical cream 1 applic topical .weekly 4 weeks 05/22/23 (Efudex) #40 grams Allergies Allergy/AdvReac Type Severity Reaction Status Date / Time hydrocodone [From [place]] AdvReac itching/steve Verified 07/21/23 15:43 mbling Review of Systems Review of Systems ROS Unobtainable: All systems reviewed & are unremarkable except as noted in HPI and below Patient History Medical History Depression Excessive daytime sleepiness Restless legs syndrome (RLS) Periodic limb movement disorder (PLMD) COVID-19 Insomnia due to medical condition History of anemia Fatigue Diverticulitis Diverticulosis ASHKAN (obstructive sleep apnea) Anxiety Urge incontinence Fecal incontinence due to anorectal disorder Rectocele Surgical History History of gynecologic surgery (07/14/22) H/O: hysterectomy History of colposcopy (08/27/21) Hx of colonoscopy Family History Family/Other Loud snoring Father Loud snoring Hypertension Diabetes mellitus Heart disease Depression Mother Loud snoring Obesity Hypertension Diabetes mellitus Depression Ovarian cancer Family/Other Obesity Heart disease Depression Grandmother Breast cancer Social History marital status: unmarried,single household members: none lives independently: Yes occupational status: previously employed Smoking Status: Never smoker alcohol intake: current Smoking Status: Never smoker alcohol intake frequency: a few times a week Substance Use Type: does not use Exam Narrative Exam Narrative: GENERAL: Alert and oriented x three, mild distress. HEENT: Head normocephalic, atraumatic, EOMI, pupils reactive, face symmetric, moist mucous membranes NECK: Supple, full range of motion EXTREMITIES: Normal range of motion, no clubbing or edema. Neurovascularly intact. Patient has a superficial laceration at the base of her 2nd finger over the radial lateral side. Does not gape, it is about 0.5 cm in length. Patient also has a laceration on the dorsum/lateral side of the thumb at the base proximally cm it does gape, unable to visualize tendon involvement. No active bleeding. Patient has cap refill less than 2 seconds in all 5 fingers. She is full range of motion of all 5 fingers you can make an okay sign as well as flex, extend, adduct and abduct. No other cuts or lacerations are appreciated. 2+ radial pulse. Normal sensation throughout. NEUROLOGICAL: Cranial nerves II through XII grossly intact. Moving all extremities SKIN: Warm, dry, no petechiae, no rashes or lesions. Initial Vital Signs Initial Vital Signs: Vital Signs Temperature 98.5 F 07/22/23 12:56 Pulse Rate 91 H 07/22/23 12:56 Respiratory Rate 16 07/22/23 12:56 Blood Pressure 146/81 H 07/22/23 12:56 Pulse Oximetry 94 07/22/23 12:56 Oxygen Delivery Method Room Air 07/22/23 12:56 Procedures Laceration Repair Laceration 1: Site: hand (First digit) Side (If applicable): left Size (cm): 1 Description: linear Depth: simple, single layer Local Anesthetic: lidocaine 2% Amount of anesthesia used (mL): 2.5 Pre-repair: wound explored, irrigated extensively and deep structures intact Skin layer closed with: nylon Skin layer suture size: 4-0 Number of sutures: 3 Technique: simple, interrupted Course Orders Ordered: Discontinued Medications Lidocaine HCl (Lidocaine 2% Inj Sdv 5ml) 5 ml INJ NOW ONE Stop: 07/22/23 14:13 Last Admin: 07/22/23 14:58 Dose: 5 ml Documented By: BEVERLEY Vital Signs Vital signs: Vital Signs - 8 hr 07/22/23 12:56 07/22/23 14:57 Temperature 98.5 F Pulse Rate 91 H 85 Respiratory Rate 16 16 Blood Pressure 146/81 H 159/71 H Pulse Oximetry 94 97 Oxygen Delivery Method Room Air Room Air MDM - Wound/Laceration MDM Narrative Medical decision making narrative: 68-year-old female who accidentally cut herself with a knife. She has a superficial laceration on her 2nd finger not requiring repair. Has a slightly deeper laceration on the thumb which was repaired. Patient is neurovascularly intact. Tetanus is up-to-date. Does not require any antibiotics at this time. Does not appear to have any tendon involvement or nerve involvement. Patient has good range of motion. Plan for follow up for suture removal in 7-10 days with return precautions. Discharge Plan Departure Patient Disposition: Home Clinical Impression: Laceration of left thumb Qualifiers: Encounter type: initial encounter Damage to nail status: without damage Laceration of finger, index Qualifiers: Encounter type: initial encounter Laterality: left Instructions: DI for Laceration Repair Activity Restrictions/Additional Instructions: Wound Care: Keep wound(s) clean and dry. Wash daily with soap and water only. Do not use over the counter products (alcohol or peroxide)on the wounds unless instructed by a physician, may use triple antibiotic ointment to the cuts on your to fingers twice daily as needed. If wound condition worsens (increased/expanding redness, developing fluid blisters, or worsening pain), either contact your doctor for an urgent re-assessment , or return to the Emergency Department. Return to the Emergency Department for any new or worsening symptoms. Return to the ED, urgent care, or vist a primary care doctor for removal or suture in 7-10 days. Return if fever greater than 100.4 Fahrenheit, increased swelling, increasing pain or worsening symptoms such as increased discharge or spreading redness. Prescriptions: No Action fluorouracil [Efudex] 5 % cream 1 applic topical .weekly 28 Days Qty: 40 1RF trazodone 150 mg tablet 150 mg PO BEDTIME PRN (Reason: Sleep) pregabalin 200 mg capsule 200 mg PO TID multivitamin [Daily Multi-Vitamin] PO cholecalciferol (vitamin D3) PO aspirin 81 mg tablet,delayed release (DR/EC) 81 mg PO DAILY bupropion HCl 300 mg tablet extended release 24 hr 300 mg PO QAM ferrous sulfate PO atorvastatin 40 mg tablet 40 mg PO DAILY amitriptyline 25 mg tablet 100 mg PO DAILY Patient Comments: take 1/2 tablet by mouth at bedtime for 6 days then INCREASE to 1 tablet vitamin E 100 unit Tablet 100 unit PO DAILY acetaminophen [Tylenol] 325 mg capsule 650 mg PO QID PRN (Reason: pain) Qty: 60 0RF Referrals: Anastasia Lee MD [Primary Care Provider] - Stand Alone Forms: Patient Portal/API
[2023-07-22 14:57] VITALS: BP 159/71; PULSE 85; RESP 16; O2SAT 97
[2023-07-22] MEDS: LIDOCAINE 2% INJ SDV 5ML 5 ML INJ (14:58)
== END 2023-07-22 14:58 | disposition home or self-care (01) ==
PROVIDERS: Emergency Provider Emergency Medicine; Family Provider Nurse Practitioner Family; PCP Family Medicine
DX: S61.012A Laceration without foreign body of left thumb without damage to nail, initial encounter (principal); S61.211A Laceration without foreign body of left index finger without damage to nail, initial encounter; W45.8XXA Other foreign body or object entering through skin, initial encounter
CPT/HCPCS: 12001; 99283

== ENCOUNTER → 2024-08-09 13:51 | Outpatient (CLI) | payer MEDICARE, MEDICAID, SELFPAY ==
--- NOTE | 2024-08-09 13:52 | DI.MG.S_ITS ---
MM screening mammo BI: 08/09/2024. BI-RADS: 1 CLINICAL: 69-year old female for bilateral screening mammogram. Tyrer-Cuzick lifetime risk of 3.3%. No personal or first-degree family history of breast cancer. PRIOR EXAMS 05/20/2023, 05/18/2022, 04/23/2021, 01/11/2020, 11/13/2015. MAMMOGRAPHY TECHNIQUE: 2D and 3D (tomosynthesis) digital mammographic views obtained, with additional images as needed for full coverage. Current study was also evaluated with a Computer Aided Detection (CAD) system. DENSITY B. There are scattered areas of fibroglandular density. MAMMOGRAPHY FINDINGS Bilateral: No suspicious mass, asymmetry, microcalcification, or other abnormality seen. IMPRESSION: * No evidence of malignancy. RECOMMENDATIONS Bilateral * Annual screening mammography. OVERALL ASSESSMENT CATEGORY BI-RADS-1: Negative. The [employer] recommends annual screening mammography beginning at age 40 for women with average risk of breast cancer. ELECTRONICALLY SIGNED: Raina Aldana M.D. on 08/12/2024 at 08:46:41 AM PT Interpreting Station ID: [id number]
== END ==
PROVIDERS: Family Provider Nurse Practitioner Family; PCP Family Medicine; Referring Provider Family Medicine; Visit Provider Family Medicine
DX: Z12.31 Encounter for screening mammogram for malignant neoplasm of breast (principal)
CPT/HCPCS: 77063; 77067